=== PATIENT | female | born 1995 | race Hispanic/Latino ===

== ENCOUNTER 2018-07-06 19:46 | Emergency (ER) | payer SELFPAY ==
--- NOTE | 2018-07-06 20:43 | EDPHYS ---
Physician Documentation [facility] Name: Alma Bates Age: 23 yrs Sex: Female : 1995 Arrival Date: 07/06/2018 Time: 19:48 Bed 18 Private MD: ED Physician Mirza Bond HPI: 07/06 21:43 This 23 yrs old Female presents to ER via Ambulatory with complaints of jr8 Abscess. 21:43 Possible cause(s): unknown. Associated signs and symptoms: The patient has no apparent jr8 associated signs or symptoms. Modifying factors: the symptoms are alleviated by nothing, the symptoms are aggravated by pressure, sitting, squeezing the lesion and expressing the contents, touching. Severity of symptoms: At their worst the symptoms were mild, in the emergency department the symptoms are unchanged. The patient has not experienced similar symptoms in the past. The patient has been recently seen by a physician:. Patient stated that she has had an ongoing abscess that has been lanced twice and been on antibiotics. Second set helped but now back. Stated that something is sticking out of hit now . 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 - Social history:: Smoking status: Patient/guardian denies using tobacco. - Ebola Screening: : Patient denies travel to an Ebola-affected area in the 21 days before illness onset. ROS: 21:43 Eyes: Negative for injury, pain, redness, and discharge, ENT: Negative for injury, jr8 pain, and discharge, Neck: Negative for injury, pain, and swelling, Cardiovascular: Negative for chest pain, palpitations, and edema, Respiratory: Negative for shortness of breath, cough, wheezing, and pleuritic chest pain, Abdomen/GI: Negative for abdominal pain, nausea, vomiting, diarrhea, and constipation, Back: Negative for injury and pain, MS/Extremity: Negative for injury and deformity, Neuro: Negative for headache, weakness, numbness, tingling, and seizure. 21:43 Skin: Positive for abscess. Exam: 21:43 Cardiovascular: Regular rate and rhythm with a normal S1 and S2. No gallops, murmurs, jr8 or rubs. Normal PMI, no JVD. No pulse deficits. Respiratory: Lungs have equal breath sounds bilaterally, clear to auscultation and percussion. No rales, rhonchi or wheezes noted. No increased work of breathing, no retractions or nasal flaring. Abdomen/GI: Soft, non-tender, with normal bowel sounds. No distension or tympany. No guarding or rebound. No evidence of tenderness throughout. Back: No spinal tenderness. No costovertebral tenderness. Full range of motion. MS/ Extremity: Pulses equal, no cyanosis. Neurovascular intact. Full, normal range of motion. Neuro: Awake and alert, GCS 15, oriented to person, place, time, and situation. Cranial nerves II-XII grossly intact. Motor strength 5/5 in all extremities. Sensory grossly intact. Cerebellar exam normal. Normal gait. 21:43 Skin: Patient has approximately 1.5 cm round rased cystic looking mass with tissue protruding out of it. Exudate can be expressed. No surrounding erythema, cellulitis, or induration . Vital Signs: 20:05 BP 116 / 84; Pulse 65; Resp 16; Temp 97.3; Pulse Ox 100% on R/A; Weight 77.11 kg (R); aj1 Height 5 ft. 3 in. (160.02 cm) (R); Pain 9/10; 20:05 Body Mass Index 30.11 (77.11 kg, 160.02 cm) aj1 MDM: 20:23 Patient medically screened. jr8 20:40 Data reviewed: vital signs, nurses notes, and as a result, I will discharge patient. jr8 Data interpreted: Pulse oximetry: on room air is 100 %. Interpretation: normal. Counseling: I had a detailed discussion with the patient and/or guardian regarding: the historical points, exam findings, and any diagnostic results supporting the discharge/admit diagnosis, the need for outpatient follow up, a general surgeon, to return to the emergency department if symptoms worsen or persist or if there are any questions or concerns that arise at home. ED course: Discussed with patient that she has atypical cystic like structure with tissue hanging out of it. Could be from the healing process but cannot tell. Something that general surgery needs to resect and look at. Will culture and give antibiotics because of the continuous drainage. Patient good with this and will follow up . 07/06 20:40 Order name: Wound Culture jr8 07/06 20:50 Order name: Urine Dipstick--Ancillary (enter results) ms 07/06 20:50 Order name: Urine --Ancillary (enter results) ms Administered Medications: No medications were administered Disposition: 21:40 Co-signature as Attending Physician, Mirza Bond MD. pkl Disposition: 07/06/18 20:42 Discharged to Home. Impression: Cutaneous abscess of buttock. - Condition is Stable. - Discharge Instructions: Skin Abscess, Incision and Drainage. - Prescriptions for Bactrim DS 800- 160 mg Oral Tablet - take 1 tablet by ORAL route every 12 hours for 10 days; 20 tablet. - Medication Reconciliation Form, Thank You Letter, Antibiotic Education, Prescription Opioid Use form. - Follow up: Fam John MD; When: 2 - 3 days; Reason: Recheck today's complaints, Continuance of care, Re-evaluation by your physician. - Problem is new. - Symptoms have improved. Signatures: Dispatcher [employer] EDBrandy Patel, RN RN aj1 Mirza Bond MD MD pkl Rene Jimenez PA PA jr8 Isa Ashby, RN RN ak1 Corrections: (The following items were deleted from the chart) 20:51 20:42 07/06/2018 20:42 Discharged to Home. Impression: Cutaneous abscess of buttock. ak1 Condition is Stable. Forms are Medication Reconciliation Form, Thank You Letter, Antibiotic Education, Prescription Opioid Use. Follow up: Fam John; When: 2 - 3 days; Reason: Recheck today's complaints, Continuance of care, Re-evaluation by your physician. Problem is new. Symptoms have improved. jr8
--- NOTE | 2018-07-06 20:43 | ER ---
Nurse's Notes [facility] Name: Alma Bates Age: 23 yrs Sex: Female : 1995 Arrival Date: 07/06/2018 Time: 19:48 Bed 18 Private MD: Diagnosis: Cutaneous abscess of buttock Presentation: 07/06 20:01 Presenting complaint: Patient states: "I had this abscess and then I went to a clinic aj1 and they drained it and gave me antibiotics. I took them and it got a little better, but then it just kept draining. I ended up going to the hospital in [place] and they said nothing was wrong and they just drained it more and gave me more antibiotics, but then it it just stayed the same and I didn't get any more antibiotics. Now its really painful and bleeding a lot and it looks like something is sticking out of it" Reports abscess to coccyx. Patient has not followed up since previous ER visit. Denies fever. Transition of care: patient was not received from another setting of care. Onset of symptoms was May 2018. Risk Assessment: Do you want to hurt yourself or someone else? Patient reports no desire to harm self or others. Initial Sepsis Screen: Does the patient meet any 2 criteria? No. Patient's initial sepsis screen is negative. Does the patient have a suspected source of infection? Yes: Skin breakdown/wound. Care prior to arrival: None. 20:01 Method Of Arrival: Ambulatory aj1 20:01 Acuity: DIANE 4 aj1 Triage Assessment: 20:05 General: Appears in no apparent distress. comfortable, Behavior is calm, cooperative, aj1 appropriate for age. Pain: Complains of pain in coccyx Pain currently is 9 out of 10 on a pain scale. Neuro: Level of Consciousness is awake, alert, obeys commands. Cardiovascular: Patient's skin is warm and dry. Respiratory: Airway is patent Respiratory effort is even, unlabored, Respiratory pattern is regular, symmetrical. 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 - Social history:: Smoking status: Patient/guardian denies using tobacco. - Ebola Screening: : Patient denies travel to an Ebola-affected area in the 21 days before illness onset. Screenin:45 Abuse screen: Denies threats or abuse. Denies injuries from another. Nutritional ak1 screening: No deficits noted. Tuberculosis screening: No symptoms or risk factors identified. Fall Risk None identified. Assessment: 20:45 General: Appears in no apparent distress. Behavior is calm, cooperative. Pain: ak1 Complains of pain in buttocks and coccyx. Neuro: No deficits noted. Cardiovascular: No deficits noted. Respiratory: No deficits noted. GI: No signs and/or symptoms were reported involving the gastrointestinal system. : No signs and/or symptoms were reported regarding the genitourinary system. EENT: No signs and/or symptoms were reported regarding the EENT system. Derm: Wound noted buttocks and coccyx Wound is left buttocks growth/abscess noted. Musculoskeletal: No signs and/or symptoms reported regarding the musculoskeletal system. Vital Signs: 20:05 BP 116 / 84; Pulse 65; Resp 16; Temp 97.3; Pulse Ox 100% on R/A; Weight 77.11 kg (R); aj1 Height 5 ft. 3 in. (160.02 cm) (R); Pain 9/10; 20:05 Body Mass Index 30.11 (77.11 kg, 160.02 cm) aj1 ED Course: 19:48 Patient arrived in ED. es 20:05 Triage completed. aj1 20:05 Arm band placed on Patient placed in waiting room, Patient notified of wait time. aj1 20:22 Rene Jimenez PA is PHCP. jr8 20:22 Mirza Bond MD is Attending Physician. jr8 20:42 Fam John MD is Referral Physician. jr8 20:44 Isa Ashby, ADI is Primary Nurse. ak1 20:46 chaperoned exam. wound dressed with 4X4 and foam tape per verbal orders from provider. ak1 Patient did not have IV access during this emergency room visit. 20:47 Patient has correct armband on for positive identification. Bed in low position. Call ak1 light in reach. Side rails up X 1. Adult w/ patient. Administered Medications: No medications were administered Outcome: 20:42 Discharge ordered by . jr8 20:46 Discharged to home ambulatory, with family. ak1 20:46 Condition: good 20:46 Discharge instructions given to patient, family, Instructed on discharge instructions, follow up and referral plans. no drinking with medication, no driving heavy equipment, medication usage, safe sex practices, wound care, Demonstrated understanding of instructions, follow-up care, medications, wound care. 20:46 Instructed on Prescriptions given X 1. 20:51 Patient left the ED. ak1 Signatures: Brandy Palacios RN RN aj1 Huong Conley Josh, PA PA jr8 Isa Ashby RN RN ak1
[2018-07-06 21:43] VITALS: BP 116/84; TEMP 97.3; O2SAT 100
[2018-07-06 21:53] LABS: Urine Blood TRACE (NEG); Urine Glucose NEGATIVE (NEG); Urine Protein NEGATIVE (NEG); Urine Specific Gravity 1.015 (1.005-1.030); Urine pH >8.5 (5.0-7.0)
== END 2018-07-06 20:51 | disposition home or self-care (01) ==
LOC: ER 19:46
DX: L02.31 Cutaneous abscess of buttock (principal)
CPT/HCPCS: 81003; 81025; 87070; 87205; 99282

== ENCOUNTER 2018-07-16 07:57 | Day surgery (SDC) | payer SELFPAY ==
[2018-07-16] MEDS ORDERED: CEFAZOLIN/SWI 1gm 1 GM/10 ML SYR ONE (08:58)
[2018-07-16] MEDS ORDERED: Ringers Lactate 1,000 ML IV ONE (08:58)
[2018-07-16] MEDS ORDERED: BUPIVACA 0.25%/EPI 0.0005% MDV 50 ML VIAL ONE (09:32)
[2018-07-16] MEDS ORDERED: PROPOFOL 200 MG/20 ML VIAL IV ONE (09:34)
[2018-07-16] MEDS ORDERED: MIDAZOLAM HCL 2 MG/2 ML INJ ONE (09:34)
[2018-07-16] MEDS ORDERED: FENTANYL CITR 100 MCG/2 ML ONE (09:39)
[2018-07-16] MEDS ORDERED: LIDOCAINE 2% MPF 5 ML VIAL ONE (09:50)
[2018-07-16] MEDS ORDERED: ROCURONIUM 50 MG/5 ML VIAL IV ONE (09:53)
[2018-07-16] MEDS ORDERED: ONDANSETRON 4 MG/2 ML VIAL ONE (09:59)
[2018-07-16] MEDS ORDERED: KETOROLAC 30 MG/ML INJ ONE (09:59)
[2018-07-16] MEDS ORDERED: METOCLOPRAMIDE 10 MG/2mL INJ ONE (10:18)
--- NOTE | 2018-07-16 10:20 | P.OP ---
Preoperative diagnosis: Pilonidal Cyst Postoperative diagnosis: Pilonidal Cyst Primary procedure: Wide Local Excision of Pilonidal Cyst Anesthesia: GETA + Local Estimated blood loss: <5cc Specimen: Tissue from Pilonidal Cyst Findings: ~3x3x2 cm pilonidal cyst Complications: None Transferred to: Recovery Room Condition: Good
[2018-07-16 10:36] VITALS: O2SAT 100
[2018-07-16] MEDS: MEPERIDINE HCL 50 MG/ML AMP ONE ×3 (10:37→10:48)
[2018-07-16] MEDS ORDERED: HYDROCODONE/APAP 5/325 MG TAB ONE (11:51)
[2018-07-16] MEDS ORDERED: SUCCINYLCHOLINE 20 MG/ML (10 ML) IV ONE (11:58)
[2018-07-16 13:02] VITALS: BP 102/46; TEMP 97.2
--- NOTE | 2018-07-16 21:28 | OP ---
Date of Procedure: 07/16/2018 Surgeon: Fam John MD, Preoperative Diagnosis: Pilonidal cyst. Postoperative Diagnosis: Pilonidal cyst. Procedure Performed: Wide local excision of pilonidal cyst. Anesthesia: General endotracheal plus local with 0.25% Marcaine. Estimated Blood Loss: Less than 5 cc. Specimen: Tissues and pilonidal cyst. Findings: 3 x 3 x 2 cm pilonidal cyst of the superior cleft. Complications: None. Disposition: Transferred to recovery room in good condition. Procedure In Detail: After informed consent was obtained, the patient was brought to the operating r oom, prepped and draped in the usual sterile fashion. After adequate anesthesia was achieved, ellipt ical incision was made for approximately 3 x 2.5 cm down to approximately 2 cm depth down to encompas s significant area of pilonidal cyst disease with obvious inflammatory change. This was cleaned out completely until completely clear. Curette was used to scrape out all remaining pilonidal tissue in the area to the left of midline in the superior jenny cleft area. Once all the necrotic tissue and p ilonidal cyst disease were removed. The area was copiously irrigated. Hemostasis was easily achieve d with electrocautery and the area was inspected 1 last time. Hemostasis was achieved this time with out any additional hemostatic maneuvers. The wound was then packed with half-inch iodoform packing a nd sterile dressing was placed over the top. The patient tolerated the procedure well without compli cation and transferred to the PACU in good condition. All counts were correct at the end of the case. BRANDY/DHRUV Voice ID: [id number] Report ID: [id number]
== END 2018-07-16 12:52 | disposition home or self-care (01) ==
LOC: OR 07:57
PROVIDERS: ATTEND Surgery
PROC: 0JB90ZZ Excision of Buttock Subcutaneous Tissue and Fascia, Open Approach (ICD-10-PCS; principal; 2018-07-16 09:15)
DX: L05.91 Pilonidal cyst without abscess (principal)
CPT/HCPCS: 81025; 88304; J0330; J0690; J2175; J2250; J2405; J2704; J2765; J3010

== ENCOUNTER 2018-09-14 09:46 | Emergency (ER) | payer SELFPAY ==
[2018-09-14] MEDS ORDERED: LIDOCAINE 1% MPF 5 ML VIAL ONE (10:37)
--- NOTE | 2018-09-14 11:47 | ER ---
Nurse's Notes [facility] Name: Alma Bates Age: 23 yrs Sex: Female : 1995 Arrival Date: 09/14/2018 Time: 09:49 Bed 18 Private MD: Diagnosis: Cutaneous abscess of buttock Presentation: 09/14 10:03 Presenting complaint: Patient states: hx of pilonidal cyst, surgery X 2 months ago by iw Dr. John, noticed an abscess a couple days ago that got bigger over night, appears to be more superficial than the last. Transition of care: patient was not received from another setting of care. Onset of symptoms was September 14, 2018. Risk Assessment: Do you want to hurt yourself or someone else? Patient reports no desire to harm self or others. Initial Sepsis Screen: Does the patient meet any 2 criteria? No. Patient's initial sepsis screen is negative. Does the patient have a suspected source of infection? No. Patient's initial sepsis screen is negative. Care prior to arrival: None. 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 - Social history:: Smoking status: Patient/guardian denies using tobacco. - Ebola Screening: : Patient negative for fever greater than or equal to 101.5 degrees Fahrenheit, and additional compatible Ebola Virus Disease symptoms Patient denies exposure to infectious person Patient denies travel to an Ebola-affected area in the 21 days before illness onset No symptoms or risks identified at this time. Screenin:06 Abuse screen: Denies threats or abuse. Denies injuries from another. Nutritional iw screening: No deficits noted. Tuberculosis screening: No symptoms or risk factors identified. Fall Risk None identified. Assessment: 10:06 General: Appears in no apparent distress. Behavior is calm, cooperative. Pain: iw Complains of pain in gluteal cleft Pain currently is 10 out of 10 on a pain scale. Neuro: Level of Consciousness is awake, alert, obeys commands, Oriented to person, place, time, situation, Moves all extremities. Full function. Cardiovascular: Capillary refill < 3 seconds in bilateral fingers Patient's skin is warm and dry. Respiratory: Airway is patent Respiratory effort is even, unlabored. GI: No signs and/or symptoms were reported involving the gastrointestinal system. Derm: Skin is intact, is healthy with good turgor, Abscess located on gluteal cleft is half dollar sized, is raised. Musculoskeletal: Range of motion: intact in all extremities. 11:30 Reassessment: Patient appears in no apparent distress at this time. Patient and/or em family updated on plan of care and expected duration. Pain level reassessed. Patient is alert, oriented x 3, equal unlabored respirations, skin warm/dry/pink. Vital Signs: 10:05 BP 120 / 71; Pulse 73; Resp 16; Pulse Ox 100% on R/A; Weight 80.74 kg; Height 5 ft. 4 iw in. (162.56 cm); Pain 10/10; 10:05 Body Mass Index 30.55 (80.74 kg, 162.56 cm) iw ED Course: 09:49 Patient arrived in ED. as 10:02 Rene Jimenez PA is PHCP. em 10:04 Triage completed. iw 10:05 Arm band placed on. iw 10:06 Patient has correct armband on for positive identification. iw 10:28 Frederick Mcwilliams LVN is Primary Nurse. em 11:20 Fam John MD is Referral Physician. jr8 11:24 Kevin Mishra MD is Private Physician. jr8 11:25 Kevin Mishra MD is Attending Physician. jr8 11:30 Assist provider with I \T\ D: of an abscess on perianal Set up I\T\D tray. Performed by em Rene ZURITA Culture sent to lab. Dressing with Neosporin and 4X4s, tape Patient tolerated well. 11:45 Patient did not have IV access during this emergency room visit. em Administered Medications: 11:10 Drug: Lidocaine (1 %) 1 vials {Note: administered by PARMINDER López.} Volume: 20 ml; Route: em Infiltration; Outcome: 11:23 Discharge ordered by . jr8 11:45 Discharged to home ambulatory, with family. em 11:45 Condition: good 11:45 Discharge instructions given to patient, Instructed on discharge instructions, follow up and referral plans. medication usage, Demonstrated understanding of instructions, follow-up care, medications, Prescriptions given X 2. 11:46 Patient left the ED. em Signatures: Frederick Mcwilliams, SENIOR PROJECT ENGINEER SENIOR PROJECT ENGINEER Shari Cortez Irene, RN RN Rene Hernandez PA PA jr8
--- NOTE | 2018-09-14 11:47 | EDPHYS ---
Physician Documentation [facility] Name: Alma Bates Age: 23 yrs Sex: Female : 1995 Arrival Date: 09/14/2018 Time: 09:49 Bed 18 Private MD: ED Physician Kevin Mishra HPI: 09/14 11:17 This 23 yrs old Female presents to ER via Ambulatory with complaints of Cyst. jr8 11:17 The patient presents with an abscess of the buttocks. Description: The affected area is jr8 moderate sized, well demarcated, raised, swollen, tense. Onset: The symptoms/episode began/occurred gradually, 2 day(s) ago. Possible cause(s): unknown. Associated signs and symptoms: The patient has no apparent associated signs or symptoms. Modifying factors: the symptoms are alleviated by nothing, the symptoms are aggravated by pressure, sitting, squeezing the lesion and expressing the contents, touching. Severity of symptoms: At their worst the symptoms were mild, in the emergency department the symptoms are unchanged. The patient has experienced a previous episode. The patient has not recently seen a physician. History of pilonidal cyst. Had to have surgery to get rid of it in the past. Now sees another abscess at surgical site. 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 - Social history:: Smoking status: Patient/guardian denies using tobacco. - Ebola Screening: : Patient negative for fever greater than or equal to 101.5 degrees Fahrenheit, and additional compatible Ebola Virus Disease symptoms Patient denies exposure to infectious person Patient denies travel to an Ebola-affected area in the 21 days before illness onset No symptoms or risks identified at this time. ROS: 11:17 Eyes: Negative for injury, pain, redness, and discharge, ENT: Negative for injury, jr8 pain, and discharge, Neck: Negative for injury, pain, and swelling, Cardiovascular: Negative for chest pain, palpitations, and edema, Respiratory: Negative for shortness of breath, cough, wheezing, and pleuritic chest pain, Abdomen/GI: Negative for abdominal pain, nausea, vomiting, diarrhea, and constipation, Back: Negative for injury and pain, MS/Extremity: Negative for injury and deformity, Neuro: Negative for headache, weakness, numbness, tingling, and seizure. 11:17 Skin: Positive for abscess. Exam: 11:17 Eyes: Pupils equal round and reactive to light, extra-ocular motions intact. Lids and jr8 lashes normal. Conjunctiva and sclera are non-icteric and not injected. Cornea within normal limits. Periorbital areas with no swelling, redness, or edema. ENT: Nares patent. No nasal discharge, no septal abnormalities noted. Tympanic membranes are normal and external auditory canals are clear. Oropharynx with no redness, swelling, or masses, exudates, or evidence of obstruction, uvula midline. Mucous membranes moist. Neck: Trachea midline, no thyromegaly or masses palpated, and no cervical lymphadenopathy. Supple, full range of motion without nuchal rigidity, or vertebral point tenderness. No Meningismus. Cardiovascular: Regular rate and rhythm with a normal S1 and S2. No gallops, murmurs, or rubs. Normal PMI, no JVD. No pulse deficits. Respiratory: Lungs have equal breath sounds bilaterally, clear to auscultation and percussion. No rales, rhonchi or wheezes noted. No increased work of breathing, no retractions or nasal flaring. Abdomen/GI: Soft, non-tender, with normal bowel sounds. No distension or tympany. No guarding or rebound. No evidence of tenderness throughout. Back: No spinal tenderness. No costovertebral tenderness. Full range of motion. MS/ Extremity: Pulses equal, no cyanosis. Neurovascular intact. Full, normal range of motion. Neuro: Awake and alert, GCS 15, oriented to person, place, time, and situation. Cranial nerves II-XII grossly intact. Motor strength 5/5 in all extremities. Sensory grossly intact. Cerebellar exam normal. Normal gait. 11:17 Skin: abscess, that is small, approximately 2.5 cm(s), of the left gluteal cleft, with fluctuance, with pointing, cellulitis, is not appreciated. Vital Signs: 10:05 BP 120 / 71; Pulse 73; Resp 16; Pulse Ox 100% on R/A; Weight 80.74 kg; Height 5 ft. 4 iw in. (162.56 cm); Pain 10; 10:05 Body Mass Index 30.55 (80.74 kg, 162.56 cm) iw Procedures: 11:17 I \T\ D: Incision and drainage was performed for an abscess of the pilonidal cyst Prepped jr8 with Betadine, Anesthetized with 5 ml's 1% Lidocaine. Incised with #11 blade. Drained moderate amount purulent fluid. bloody fluid. Loculations removed. Cultures obtained. Abscess cavity explored. Packed with iodoform gauze, Dressing: sterile 4x4 gauze, the patient tolerated the procedure well. MDM: 10:05 Patient medically screened. jr8 11:17 Data reviewed: vital signs, nurses notes, lab test result(s), and as a result, I will jr8 discharge patient. Data interpreted: Pulse oximetry: on room air is 100 %. Interpretation: normal. Counseling: I had a detailed discussion with the patient and/or guardian regarding: the historical points, exam findings, and any diagnostic results supporting the discharge/admit diagnosis, lab results, the need for outpatient follow up, a general surgeon, to return to the emergency department if symptoms worsen or persist or if there are any questions or concerns that arise at home. 09/14 11:16 Order name: Wound Culture [facility] 09/14 10:23 Order name: I\T\D Setup; Complete Time: 10:28 [facility] Administered Medications: 11:10 Drug: Lidocaine (1 %) 1 vials {Note: administered by PA. Rene} Volume: 20 ml; Route: em Infiltration; Disposition: 09/15 09:14 Co-signature as Attending Physician, Kevin Mishra MD. gs Disposition: 09/14/18 11:23 Discharged to Home. Impression: Cutaneous abscess of buttock. - Condition is Stable. - Discharge Instructions: Skin Abscess, Incision and Drainage. - Prescriptions for Tylenol- Codeine #3 300-30 mg Oral Tablet - take 2 tablets by ORAL route every 6 hours As needed; 20 tablet. Bactrim DS 800- 160 mg Oral Tablet - take 1 tablet by ORAL route every 12 hours for 10 days; 20 tablet. - Work release form, Medication Reconciliation Form, Thank You Letter, Antibiotic Education, Prescription Opioid Use form. - Follow up: Fam John MD; When: 48 Hours; Reason: Wound Recheck, Recheck today's complaints, Continuance of care, Re-evaluation by your physician. - Problem is new. - Symptoms have improved. Signatures: Dispatcher [employer] EDFrederick Lazar, APPLICATION TECHNICIAN APPLICATION TECHNICIAN em Asha Bond RN RN Rene Hernandez, PARMINDER PA jr8 Kevin Mishra MD MD gs Corrections: (The following items were deleted from the chart) 09/14 11:46 11:23 09/14/2018 11:23 Discharged to Home. Impression: Cutaneous abscess of buttock. em Condition is Stable. Forms are Medication Reconciliation Form, Thank You Letter, Antibiotic Education, Prescription Opioid Use. Follow up: Fam John; When: 48 Hours; Reason: Wound Recheck, Recheck today's complaints, Continuance of care, Re-evaluation by your physician. Problem is new. Symptoms have improved. jr8
[2018-09-14 11:53] VITALS: BP 120/71; O2SAT 100
== END 2018-09-14 11:46 | disposition home or self-care (01) ==
LOC: ER 09:46
PROC: 0H98XZZ Drainage of Buttock Skin, External Approach (ICD-10-PCS; principal; 2018-09-14)
DX: L05.01 Pilonidal cyst with abscess (principal)
CPT/HCPCS: 87070; 87205; 99283

== ENCOUNTER 2018-09-17 17:56 | Emergency (ER) | payer SELFPAY ==
--- NOTE | 2018-09-17 19:06 | EDPHYS ---
Physician Documentation [facility] Name: Alma Bates Age: 23 yrs Sex: Female : 1995 Arrival Date: 09/17/2018 Time: 17:57 Bed 9 Private MD: ED Physician Saúl Flores HPI: 09/17 19:16 This 23 yrs old Female presents to ER via Ambulatory with complaints of Cyst. jr8 19:16 Patient presents to ED for recheck of: abscess. The affected area is on the buttocks. jr8 The patient has experienced a previous episode. The patient has been recently seen by a physician:. Patient was seen for I\T\D of abscess a few days ago. Came back today for repacking . 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 - Social history:: Smoking status: Patient/guardian denies using tobacco, Patient/guardian denies using alcohol. - Ebola Screening: : Patient negative for fever greater than or equal to 101.5 degrees Fahrenheit, and additional compatible Ebola Virus Disease symptoms Patient denies exposure to infectious person Patient denies travel to an Ebola-affected area in the 21 days before illness onset. ROS: 19:16 Eyes: Negative for injury, pain, redness, and discharge, ENT: Negative for injury, jr8 pain, and discharge, Neck: Negative for injury, pain, and swelling, Cardiovascular: Negative for chest pain, palpitations, and edema, Respiratory: Negative for shortness of breath, cough, wheezing, and pleuritic chest pain, Abdomen/GI: Negative for abdominal pain, nausea, vomiting, diarrhea, and constipation, Back: Negative for injury and pain, MS/Extremity: Negative for injury and deformity, Neuro: Negative for headache, weakness, numbness, tingling, and seizure. 19:16 Skin: Positive for abscess, of the buttocks. Exam: 19:16 Eyes: Pupils equal round and reactive to light, extra-ocular motions intact. Lids and jr8 lashes normal. Conjunctiva and sclera are non-icteric and not injected. Cornea within normal limits. Periorbital areas with no swelling, redness, or edema. ENT: Nares patent. No nasal discharge, no septal abnormalities noted. Tympanic membranes are normal and external auditory canals are clear. Oropharynx with no redness, swelling, or masses, exudates, or evidence of obstruction, uvula midline. Mucous membranes moist. Neck: Trachea midline, no thyromegaly or masses palpated, and no cervical lymphadenopathy. Supple, full range of motion without nuchal rigidity, or vertebral point tenderness. No Meningismus. Cardiovascular: Regular rate and rhythm with a normal S1 and S2. No gallops, murmurs, or rubs. Normal PMI, no JVD. No pulse deficits. Respiratory: Lungs have equal breath sounds bilaterally, clear to auscultation and percussion. No rales, rhonchi or wheezes noted. No increased work of breathing, no retractions or nasal flaring. Abdomen/GI: Soft, non-tender, with normal bowel sounds. No distension or tympany. No guarding or rebound. No evidence of tenderness throughout. Back: No spinal tenderness. No costovertebral tenderness. Full range of motion. MS/ Extremity: Pulses equal, no cyanosis. Neurovascular intact. Full, normal range of motion. Neuro: Awake and alert, GCS 15, oriented to person, place, time, and situation. Cranial nerves II-XII grossly intact. Motor strength 5/5 in all extremities. Sensory grossly intact. Cerebellar exam normal. Normal gait. 19:16 Skin: Wound recheck: Abscess: the wound has improved, decreased discharge, decreased erythema, decreased pain. Vital Signs: 18:13 BP 118 / 65; Pulse 69; Resp 18; Temp 97.8(TE); Pulse Ox 99% on R/A; Weight 79.38 kg; hj Height 5 ft. 4 in. (162.56 cm); Pain 10/10; 18:13 Body Mass Index 30.04 (79.38 kg, 162.56 cm) Procedures: 19:16 I \T\ D: Repacked wound with iodoform. Covered with non adherent and dressed with foam jr8 tape. MDM: 18:43 Patient medically screened. jr8 19:04 Data reviewed: vital signs, nurses notes, and as a result, I will discharge patient. jr8 Data interpreted: Pulse oximetry: on room air is 99 %. Interpretation: normal. Counseling: I had a detailed discussion with the patient and/or guardian regarding: the historical points, exam findings, and any diagnostic results supporting the discharge/admit diagnosis, the need for outpatient follow up, a general surgeon, to return to the emergency department if symptoms worsen or persist or if there are any questions or concerns that arise at home. Administered Medications: No medications were administered Disposition: 09/18 06:48 Co-signature as Attending Physician, Saúl Flores MD I agree with the assessment and angelina plan of care. Disposition: 09/17/18 19:06 Discharged to Home. Impression: Encounter for change or removal of surgical wound dressing. - Condition is Stable. - Discharge Instructions: Incision Care, Adult. - Medication Reconciliation Form, Thank You Letter, Antibiotic Education, Prescription Opioid Use form. - Follow up: Fam John MD; When: Tomorrow; Reason: Wound Recheck, Recheck today's complaints, Continuance of care, Re-evaluation by your physician. - Problem is new. - Symptoms have improved. Signatures: Deanna Baldwin, RN RN Saúl Henley MD MD cha Roszak, Josh, PA PA jr8 Mat Teran RN RN hj Corrections: (The following items were deleted from the chart) 09/17 19:19 19:06 09/17/2018 19:06 Discharged to Home. Impression: Encounter for change or removal aj of surgical wound dressing. Condition is Stable. Forms are Medication Reconciliation Form, Thank You Letter, Antibiotic Education, Prescription Opioid Use. Follow up: Fam John; When: Tomorrow; Reason: Wound Recheck, Recheck today's complaints, Continuance of care, Re-evaluation by your physician. Problem is new. Symptoms have improved. jr8
--- NOTE | 2018-09-17 19:06 | ER ---
Nurse's Notes [facility] Name: Alma Bates Age: 23 yrs Sex: Female : 1995 Arrival Date: 09/17/2018 Time: 17:57 Bed 9 Private MD: Diagnosis: Encounter for change or removal of surgical wound dressing Presentation: 09/17 18:11 Presenting complaint: Patient states: i came the other for a cyst on top of my butt hj crack, they lanced it and packed it; i cant take into a doctor for follow, was told to just come back here to remove the packing; denies fever and chills; pain is 10/10;. Transition of care: patient was not received from another setting of care. Onset of symptoms was September 17, 2018. Risk Assessment: Do you want to hurt yourself or someone else? Patient reports no desire to harm self or others. Initial Sepsis Screen: Does the patient meet any 2 criteria? No. Patient's initial sepsis screen is negative. Does the patient have a suspected source of infection? No. Patient's initial sepsis screen is negative. Care prior to arrival: None. 18:11 Method Of Arrival: Ambulatory 18:11 Acuity: DIANE 4 hj Triage Assessment: 18:13 General: Appears in no apparent distress. uncomfortable, Behavior is calm, cooperative, hj appropriate for age. Pain: Complains of pain in buttocks. 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 - Social history:: Smoking status: Patient/guardian denies using tobacco, Patient/guardian denies using alcohol. - Ebola Screening: : Patient negative for fever greater than or equal to 101.5 degrees Fahrenheit, and additional compatible Ebola Virus Disease symptoms Patient denies exposure to infectious person Patient denies travel to an Ebola-affected area in the 21 days before illness onset. Screenin:13 Abuse screen: Denies threats or abuse. Denies injuries from another. Nutritional hj screening: No deficits noted. Tuberculosis screening: No symptoms or risk factors identified. Fall Risk None identified. Assessment: 18:55 General: Appears in no apparent distress. comfortable, Behavior is calm, cooperative. iw Pain: Complains of pain in gluteal cleft. Neuro: Level of Consciousness is awake, alert, obeys commands, Oriented to person, place, time, situation, Moves all extremities. Full function. Cardiovascular: Patient's skin is warm and dry. Respiratory: Respiratory effort is even, unlabored. Derm: Abscess located on gluteal cleft is nickel sized, lanced by Rene last week, packing in place. Musculoskeletal: Range of motion: intact in all extremities. Vital Signs: 18:13 BP 118 / 65; Pulse 69; Resp 18; Temp 97.8(TE); Pulse Ox 99% on R/A; Weight 79.38 kg; hj Height 5 ft. 4 in. (162.56 cm); Pain 10/10; 18:13 Body Mass Index 30.04 (79.38 kg, 162.56 cm) ED Course: 17:57 Patient arrived in ED. am2 18:12 Triage completed. hj 18:13 Arm band placed on right wrist. hj 18:15 Patient has correct armband on for positive identification. Bed in low position. Call light in reach. Side rails up X 1. 18:43 [facility] jr8 18:43 Saúl Flores MD is Attending Physician. jr8 19:04 Fam John MD is Referral Physician. jr8 19:17 Deanna Baldwin, RN is Primary Nurse. aj 19:18 No provider procedures requiring assistance completed. Patient did not have IV access aj during this emergency room visit. Administered Medications: No medications were administered Outcome: 19:06 Discharge ordered by . jr8 19:18 Discharged to home ambulatory. aj 19:18 Condition: good 19:18 Discharge instructions given to patient, Instructed on discharge instructions, follow up and referral plans. Demonstrated understanding of instructions, follow-up care. 19:19 Patient left the ED. aj Signatures: Deanna Baldwin, RN Asha Donnelly RN Rene Burrows PA PA jrMat Kay RN RN hj Moreno, Amanda am2 Corrections: (The following items were deleted from the chart) 18:15 18:13 Pulse 69bpm; Resp 18bpm; Pulse Ox 99% RA; Temp 97.8F Temporal; 79.38 kg; Height 5 hj ft. 4 in.; BMI: 30.0; Pain 10/10; hj
[2018-09-17 20:27] VITALS: BP 118/65; TEMP 97.8; O2SAT 99
== END 2018-09-17 19:19 | disposition home or self-care (01) ==
LOC: ER 17:56
DX: L02.31 Cutaneous abscess of buttock (principal); Z48.01 Encounter for change or removal of surgical wound dressing
CPT/HCPCS: 99281

== ENCOUNTER 2018-09-24 07:21 | Day surgery (SDC) | payer SELFPAY ==
[2018-09-24] MEDS ORDERED: PROPOFOL 200 MG/20 ML VIAL IV ONE (08:04)
[2018-09-24] MEDS ORDERED: GLYCOPYRROLATE 0.2 MG/ML SYR ONE ×2 (08:06)
[2018-09-24] MEDS ORDERED: LIDOCAINE 2% MPF 5 ML VIAL ONE ×2 (08:07→09:13)
[2018-09-24] MEDS ORDERED: ROCURONIUM 50 MG/5 ML VIAL IV ONE (08:08)
[2018-09-24] MEDS ORDERED: FENTANYL CITR 250 MCG/5 ML ONE (08:08)
[2018-09-24] MEDS ORDERED: ONDANSETRON 4 MG/2 ML VIAL ONE (08:10)
[2018-09-24] MEDS ORDERED: CEFAZOLIN 1GM (PREMIX IV) 1 GM/50 ML BAG ONE (08:11)
[2018-09-24] MEDS ORDERED: Ringers Lactate 1,000 ML IV ONE (08:11)
[2018-09-24] MEDS ORDERED: MIDAZOLAM HCL 2 MG/2 ML INJ ONE (08:12)
[2018-09-24] MEDS ORDERED: BUPIVACA 0.25%/EPI 0.0005% MDV 50 ML VIAL ONE (08:29)
[2018-09-24] MEDS ORDERED: METHYLENE BLUE 0.5% 10 ML AMP ONE (08:30)
--- NOTE | 2018-09-24 08:56 | P.OP ---
Preoperative diagnosis: Pilonidal Cyst Postoperative diagnosis: Pilonidal Cyst Primary procedure: Excision of Pilonidal Cyst Anesthesia: GETA + Local Estimated blood loss: <2cc Specimen: Debridement Tissue Findings: ~4cm x 2cm x 2cm pilonidal cyst Complications: None Transferred to: Recovery Room Condition: Good
[2018-09-24] MEDS ORDERED: BUPIVACAINE 0.25% PF 10 ML VIAL ONE (09:13)
[2018-09-24] MEDS ORDERED: CYCLOPENTOLATE 1% OPTH 2 ML ONE (09:13)
[2018-09-24] MEDS: MEPERIDINE HCL 50 MG/ML AMP ONE ×3 (09:18→09:30)
[2018-09-24] MEDS ORDERED: NEOSTIGMINE 1 MG/ML -5 ML SYRINGE ONE (10:09)
[2018-09-24 10:14] VITALS: O2SAT 100
[2018-09-24] MEDS ORDERED: HYDROCODONE/APAP 5/325 MG TAB ONE (10:45)
[2018-09-24] MEDS ORDERED: ONDANSETRON 4 MG (ODT) TAB ONE (11:57)
[2018-09-24 12:40] VITALS: BP 107/70; TEMP 98
--- NOTE | 2018-09-24 20:29 | OP ---
Date of Procedure: 09/24/2018 Surgeon: Fma John MD, Brief History Of Present Illness: The patient is a 23-year-old female who has a history of significa nt pilonidal cyst disease, drained in the ER previously with recurrence of symptoms and enlargement o f the area of defect, consistent with enlarging pilonidal cyst. Preoperative Diagnosis: Pilonidal cyst. Postoperative Diagnosis: Pilonidal cyst. Procedure Performed: Excision of pilonidal cyst. Anesthesia: General endotracheal plus local with 0.25% Marcaine. Estimated Blood Loss: Less than 2 cc. Specimen: Debridement tissue. Findings: A 4 cm x 2 cm x 2 cm pilonidal cyst. Complications: None. Disposition: Transferred to recovery room in good condition. Procedure In Detail: After informed consent was obtained, the patient was brought to the operating r oom and prepped and draped in usual sterile fashion. After adequate anesthesia was achieved, an area of the pilonidal cyst at the superior jenny cleft was incised for approximately 4 cm x 2 cm elliptic al incision around the affected skin. This was taken down to approximately 2 cm to encompass the ent sedrick pilonidal cyst tissue and the hypertrophic granulation tissue. This was removed in its entirety. Hemostasis was achieved with electrocautery. The area was inspected. Proper hemostasis was achiev ed at the end of the procedure. The area was copiously irrigated multiple times and then dried until completely dry, and the wound was then packed with half-inch iodoform packing. A sterile dressing w as placed over top. The patient tolerated the procedure well without evidence of complication and tr ansferred to PACU in good condition. All counts were correct at the end of the case. BRANDY/DHRVU Voice ID: [id number] Report ID: [id number]
== END 2018-09-24 11:48 | disposition home or self-care (01) ==
LOC: OR 07:21
PROVIDERS: ATTEND Surgery
PROC: 0JB90ZZ Excision of Buttock Subcutaneous Tissue and Fascia, Open Approach (ICD-10-PCS; principal; 2018-09-24 08:30)
DX: L05.91 Pilonidal cyst without abscess (principal)
CPT/HCPCS: 81025; 88304; J0690; J2175; J2250; J2405; J2704; J2710; J3010

== ENCOUNTER 2019-01-24 19:24 | Emergency (ER) | payer SELFPAY ==
--- NOTE | 2019-01-24 20:25 | ER ---
Nurse's Notes [facility] Name: Alma Bates Age: 23 yrs Sex: Female : 1995 Arrival Date: 01/24/2019 Time: 19:28 Bed 7 Private MD: Diagnosis: Pilonidal cyst and sinus;Pilonidal cyst and sinus with abscess Presentation: 01/24 19:31 Presenting complaint: Patient states: I have had two surgeries to removal pilonidal ed1 cysts and I had another form over one of my scars. While I was at work today it popped and I squeezed it. I don't think it is draining anymore but it hurts. I called Dr. John and they prescribed me Bactrim and I started taking it today. Transition of care: patient was not received from another setting of care. Onset of symptoms was January 24, 2019. Risk Assessment: Do you want to hurt yourself or someone else? Patient reports no desire to harm self or others. Initial Sepsis Screen: Does the patient meet any 2 criteria? No. Patient's initial sepsis screen is negative. Does the patient have a suspected source of infection? No. Patient's initial sepsis screen is negative. Care prior to arrival: cleansed area with chlorhexidine. 19:31 Method Of Arrival: Ambulatory ed1 19:31 Acuity: DIANE 4 ed1 Triage Assessment: 19:34 General: Appears in no apparent distress. Behavior is calm, cooperative. Pain: ed1 Complains of pain in buttocks Pain currently is 10 out of 10 on a pain scale. 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 - Social history:: Smoking status: Patient/guardian denies using tobacco. - Ebola Screening: : Patient negative for fever greater than or equal to 101.5 degrees Fahrenheit, and additional compatible Ebola Virus Disease symptoms Patient denies exposure to infectious person Patient denies travel to an Ebola-affected area in the 21 days before illness onset No symptoms or risks identified at this time. Screenin:53 Abuse screen: Denies threats or abuse. Denies injuries from another. Nutritional lp1 screening: No deficits noted. Tuberculosis screening: No symptoms or risk factors identified. Fall Risk None identified. Assessment: 19:53 General: Appears uncomfortable, Behavior is appropriate for age. Pain: Complains of lp1 pain in coccyx. Neuro: Level of Consciousness is awake, alert, obeys commands. Cardiovascular: No deficits noted. Respiratory: No deficits noted. GI: No deficits noted. : No deficits noted. EENT: No deficits noted. Musculoskeletal: No deficits noted. 20:10 Derm: Abscess located on gluteal cleft is nickel sized. lp1 Vital Signs: 19:34 BP 114 / 65; Pulse 71; Resp 18; Temp 98.4; Pulse Ox 100% on R/A; Weight 81.65 kg; ed1 Height 5 ft. 3 in. (160.02 cm); Pain 10/10; 19:34 Body Mass Index 31.89 (81.65 kg, 160.02 cm) ed1 ED Course: 19:28 Patient arrived in ED. es 19:33 Triage completed. ed1 19:34 Arm band placed on left wrist. ed1 19:38 María Wolfe, RN is Primary Nurse. lp1 19:53 Patient has correct armband on for positive identification. lp1 20:03 Kevin Mishra MD is Attending Physician. gs 20:05 Patient did not have IV access during this emergency room visit. lp1 20:24 Fam John MD is Referral Physician. gs 20:35 No provider procedures requiring assistance completed. lp1 Administered Medications: 20:27 Drug: [place] 10 mg-325 mg 1 tabs Route: PO; lp1 20:40 Follow up: Response: Medication administered at discharge. lp1 Outcome: 20:24 Discharge ordered by . gs 20:40 Discharged to home ambulatory, with family. lp1 20:40 Condition: good 20:40 Discharge instructions given to patient, Instructed on discharge instructions, follow up and referral plans. medication usage, Demonstrated understanding of instructions, follow-up care, medications, Prescriptions given X 1. 20:40 Patient left the ED. lp1 Signatures: Huong Conley Erika, RN RN ed1 María Wolfe, ADI RN lp1 Kevin Mishra MD MD gs Corrections: (The following items were deleted from the chart) 19:36 19:31 Presenting complaint: Patient states: I have had two surgeries to removal ed1 pilonidal cysts and I had another form over one of my scars. While I was at work today it popped and I squeezed it. I don't think it is draining anymore but it hurts. ed1
--- NOTE | 2019-01-24 20:25 | EDPHYS ---
Physician Documentation [facility] Name: Alma Bates Age: 23 yrs Sex: Female : 1995 Arrival Date: 01/24/2019 Time: 19:28 Bed 7 Private MD: ED Physician Kevin Mishra HPI: 01/24 20:17 This 23 yrs old Female presents to ER via Ambulatory with complaints of Cyst. gs 20:17 Description: The affected area is small, confluent, draining, erythematous. Onset: The gs symptoms/episode began/occurred yesterday. Possible cause(s): pilonidal cyst. Associated signs and symptoms: Pertinent negatives: fever. Modifying factors: the symptoms are alleviated by nothing, the symptoms are aggravated by nothing. Severity of symptoms: At their worst the symptoms were moderate, in the emergency department the symptoms are unchanged. The patient has experienced similar episodes in the past, a few times. 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 - Social history:: Smoking status: Patient/guardian denies using tobacco. - Ebola Screening: : Patient negative for fever greater than or equal to 101.5 degrees Fahrenheit, and additional compatible Ebola Virus Disease symptoms Patient denies exposure to infectious person Patient denies travel to an Ebola-affected area in the 21 days before illness onset No symptoms or risks identified at this time. ROS: 20:17 All other systems are negative. gs Exam: 20:17 ENT: Nares patent. No nasal discharge, no septal abnormalities noted. Tympanic gs membranes are normal and external auditory canals are clear. Oropharynx with no redness, swelling, or masses, exudates, or evidence of obstruction, uvula midline. Mucous membranes moist. Neck: Trachea midline, no thyromegaly or masses palpated, and no cervical lymphadenopathy. Supple, full range of motion without nuchal rigidity, or vertebral point tenderness. No Meningismus. Cardiovascular: Regular rate and rhythm with a normal S1 and S2. No gallops, murmurs, or rubs. Normal PMI, no JVD. No pulse deficits. Respiratory: Lungs have equal breath sounds bilaterally, clear to auscultation and percussion. No rales, rhonchi or wheezes noted. No increased work of breathing, no retractions or nasal flaring. Abdomen/GI: Soft, non-tender, with normal bowel sounds. No distension or tympany. No guarding or rebound. No evidence of tenderness throughout. Back: No spinal tenderness. No costovertebral tenderness. Full range of motion. MS/ Extremity: Pulses equal, no cyanosis. Neurovascular intact. Full, normal range of motion. 20:17 Constitutional: The patient appears alert, awake. 20:17 Skin: abscess, that is small, with drainage, with induration, upper right buttock. Vital Signs: 19:34 BP 114 / 65; Pulse 71; Resp 18; Temp 98.4; Pulse Ox 100% on R/A; Weight 81.65 kg; ed1 Height 5 ft. 3 in. (160.02 cm); Pain 10/10; 19:34 Body Mass Index 31.89 (81.65 kg, 160.02 cm) ed1 MDM: 20:16 Patient medically screened. gs 20:17 Data reviewed: vital signs, nurses notes. Counseling: I had a detailed discussion with gs the patient and/or guardian regarding: the historical points, exam findings, and any diagnostic results supporting the discharge/admit diagnosis, the need for outpatient follow up, a general surgeon. Administered Medications: 20:27 Drug: [place] 10 mg-325 mg 1 tabs Route: PO; lp1 20:40 Follow up: Response: Medication administered at discharge. lp1 Disposition: 01/24/19 20:24 Discharged to Home. Impression: Pilonidal cyst and sinus, Pilonidal cyst and sinus with abscess. - Condition is Stable. - Discharge Instructions: Pilonidal Cyst. - Prescriptions for Tylenol- Codeine #3 300-30 mg Oral Tablet - take 1 tablet by ORAL route every 6 hours As needed; 12 tablet. - Medication Reconciliation Form, Thank You Letter, Antibiotic Education, Prescription Opioid Use form. - Follow up: Fam John MD; When: Tomorrow; Reason: Recheck today's complaints. Signatures: Alexia Espana RN RN ed1 María Wolfe RN RN lp1 Kevin Mishra MD MD gs Corrections: (The following items were deleted from the chart) 20:40 20:24 01/24/2019 20:24 Discharged to Home. Impression: Pilonidal cyst and sinus; lp1 Pilonidal cyst and sinus with abscess. Condition is Stable. Forms are Medication Reconciliation Form, Thank You Letter, Antibiotic Education, Prescription Opioid Use. Follow up: Fam John; When: Tomorrow; Reason: Recheck today's complaints. gs
[2019-01-24] MEDS ORDERED: HYDROCODONE/APAP 10/325 TAB ONE (20:38)
[2019-01-24 21:55] VITALS: BP 114/65; TEMP 98.4; O2SAT 100
== END 2019-01-24 20:40 | disposition home or self-care (01) ==
LOC: ER 19:24
DX: L05.02 Pilonidal sinus with abscess (principal)
CPT/HCPCS: 99283

== ENCOUNTER 2021-03-26 13:27 | Emergency (ER) | payer SELFPAY ==
--- OUTSIDE RECORDS SUMMARY | 2021-03-26 13:30 | XMS REPORT | Continuity of Care Document ---
:1995 Author Organization [facility] t Address [address] [place] [address] Care Team Providers Name Role Phone Florence Flores Attending Clinician Doctor Unassigned, [place] Attending Clinician Unavailable Grisel Gómez NP Attending Clinician Saw JOSHI Attending Clinician Unavailable Yazmin JOSHI, L Attending Clinician Unavailable Lab, Fam Pob I Attending Clinician Unavailable Problems This patient has no known problems. Allergies, Adverse Reactions, Alerts This patient has no known allergies or adverse reactions. Medications This patient has no known medications. Procedures This patient has no known procedures. Encounters Start End Encounter Admission Attending Care Care Encounter Source Date/Time Date/Time Type Type Clinicians Facility Department ID 2021-02-26 2021-02-27 Emergency [facility] [id number] 23:38:00 02:03:00 Florence Blankenship [id number] [place] [id number] [place] [id number] 2021-02-26 2021-02-26 Orders Doctor SWETA [id number] 00:00:00 00:00:00 Only UnassignedADIN [id number] [place] [facility] [id number] 2020-07-16 2020-07-16 Emergency [facility] [id number] 18:41:00 20:35:00 Trini Blankenship [id number] [place] [id number] [place] [id number] 2020-04-08 2020-04-08 Letter SWETA [place] [id number] 00:00:00 00:00:00 (Out) Lynn [place] [id number] [facility] [id number] 2020-04-08 2020-04-08 Telephone Arce SWETA [id number] 00:00:00 00:00:00 , Soraida [place] [id number] [place] [id number] 2020-04-07 2020-04-07 Laboratory Lab, [facility] [id number] 15:00:05 15:20:05 Only Fam [facility] [id number] [place] [id number] [place] [id number] [address]al [address] 2020-01-26 2020-01-27 Emergency [facility] [id number] 23:35:20 01:24:00 Trini Blankenship [id number] [place] [id number] [place] [id number] Results This patient has no known results.
[2021-03-26 14:18] LABS: Urine Blood Trace-intact (Negative); Urine Glucose Negative (Negative); Urine Protein Negative (Negative); Urine Specific Gravity 1.015 (1.005-1.030)
[2021-03-26 14:23] LABS: Absolute Lymphocytes (CBC) 2.2 K/uL (0.7-4.9); Basophils % 0.9 % (0-1.3); Lymphocytes % 24.7 % (15.3-44.8); RBC Red Blood Cell Count 4.56 M/uL (3.86-4.86)
[2021-03-26 14:39] LABS: ALT/SGPT 22 U/L (12-78); AST/SGOT 8 U/L (15-37); Albumin 3.7 g/dL (3.4-5.0); Alkaline Phosphatase 74 U/L (45-117); BUN Blood Urea Nitrogen 10 mg/dL (7-18); Bicarbonate 25 mmol/L (21-32); Bilirubin Direct < 0.1 mg/dL (0-0.2); Bilirubin Total 0.3 mg/dL (0.2-1.0); Glucose Level 109 mg/dL (74-106); Lipase 69 U/L (73-393); Potassium 3.5 mmol/L (3.5-5.1); Protein, Total 6.7 g/dL (6.4-8.2); Sodium Level 142 mmol/L (136-145)
--- NOTE | 2021-03-26 15:05 | RAD REPORT ---
EXAM DESCRIPTION: CTAbdomen Pelvis W Contrast - 03/26/2021 2:41 pm CLINICAL HISTORY: Abdominal pain. ABD PAIN COMPARISON: No comparisons TECHNIQUE: Biphasic CT imaging of the abdomen and pelvis was performed with 100 ml non-ionic IV cont rast. All CT scans are performed using dose optimization technique as appropriate and may include automated exposure control or mA/KV adjustment according to patient size. FINDINGS: The lung bases are clear. The liver, spleen, pancreas, gallbladder, and adrenal glands are unremarkable. Mild bilateral hydrone phrosis. No obstructing stone or mass identified. No suspicious renal mass. No stones are seen. No johnathon wel obstruction identified. Normal appendix. No bowel obstruction, free air, free fluid or abscess. The appendix is normal. No evidence of signi ficant lymphadenopathy. No suspicious bony findings. IMPRESSION: No acute intra-abdominal or pelvic finding. Mild bilateral hydronephrosis which is nonsp ecific and could reflect ascending urinary tract infection. Correlate with urinalysis. .
[2021-03-26] MEDS ORDERED: KETOROLAC 30 MG/ML INJ ONE (15:12)
[2021-03-26] MEDS ORDERED: ONDANSETRON 4 MG/2 ML VIAL ONE (15:12)
[2021-03-26 15:37] LABS: Urine Specific Gravity/Preg 1.015 (1.005-1.030)
--- NOTE | 2021-03-26 15:58 | EDPHYS ---
Physician Documentation [facility] Name: Alma Bates Age: 25 yrs Sex: Female : 1995 Arrival Date: 03/26/2021 Time: 13:29 Bed 6 Private MD: ED Physician Bradley Millard HPI: 03/26 14:31 This 25 yrs old Female presents to ER via Ambulatory with complaints of L Side kb Abd Pain. 14:31 The patient presents with abdominal pain in the left upper quadrant. Onset: The kb symptoms/episode began/occurred 2 week(s) ago. The symptoms do not radiate. Associated signs and symptoms: Pertinent positives: nausea, Pertinent negatives: diarrhea, fever, vomiting. The symptoms are described as intermittent. Modifying factors: The symptoms are alleviated by nothing, the symptoms are aggravated by nothing. Severity of pain: At its worst the pain was moderate in the emergency department the pain is unchanged. The patient has not experienced similar symptoms in the past. The patient has not recently seen a physician. Reports left upper abdominal pain intermittent for 2 weeks. Episodes are getting more frequent. Worse at night. Reports nausea. Denies vomiting diarrhea fever chills. 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 - Social history:: Smoking status: Patient denies any tobacco usage or history of. ROS: 14:28 Constitutional: Negative for fever, chills, and weight loss. kb 14:28 Abdomen/GI: Positive for abdominal pain, nausea, Negative for vomiting, diarrhea. 14:28 All other systems are negative. Exam: 14:28 Constitutional: This is a well developed, well nourished patient who is awake, alert, kb and in no acute distress. Head/Face: Normocephalic, atraumatic. ENT: Moist Mucous membranes Cardiovascular: Regular rate and rhythm with a normal S1 and S2. No gallops, murmurs, or rubs. No pulse deficits. Respiratory: Respirations even and unlabored. No increased work of breathing, no retractions or nasal flaring. Skin: Warm, dry with normal turgor. Normal color. MS/ Extremity: Pulses equal, no cyanosis. Neurovascular intact. Full, normal range of motion. Neuro: Awake and alert, GCS 15, oriented to person, place, time, and situation. Moves all extremities. Normal gait. Psych: Awake, alert, with orientation to person, place and time. Behavior, mood, and affect are within normal limits. 14:28 Abdomen/GI: Inspection: abdomen appears normal, Bowel sounds: normal, in all quadrants, Palpation: soft, in all quadrants, mild abdominal tenderness, in the right upper quadrant and left upper quadrant. Vital Signs: 13:38 BP 120 / 76; Pulse 87; Resp 20; Temp 98.3; Pulse Ox 99% on R/A; Weight 90.81 kg (M); kg Height 5 ft. 4 in. (162.56 cm); Pain 8/10; 14:57 BP 106 / 66; Pulse 71; Resp 17; Pulse Ox 100% on R/A; Pain 8/10; ap3 13:38 Body Mass Index 34.36 (90.81 kg, 162.56 cm) kg MDM: 13:46 Patient medically screened. kb 14:30 Data reviewed: vital signs, nurses notes. Data interpreted: Pulse oximetry: on room air kb is 99 %. Interpretation: normal. 15:56 Counseling: I had a detailed discussion with the patient and/or guardian regarding: the kb historical points, exam findings, and any diagnostic results supporting the discharge/admit diagnosis, lab results, radiology results, the need for outpatient follow up, a family practitioner, to return to the emergency department if symptoms worsen or persist or if there are any questions or concerns that arise at home. 03/26 13:46 Order name: Basic Metabolic Panel; Complete Time: 14:41 kb 03/26 13:46 Order name: CBC with Diff; Complete Time: 14:25 kb 03/26 13:46 Order name: Hepatic Function; Complete Time: 14:41 kb 03/26 13:46 Order name: Lipase; Complete Time: 14:41 kb 03/26 14:18 Order name: Urine Dipstick-Ancillary; Complete Time: 14:20 EDMS 03/26 15:06 Order name: Urine --Ancillary (enter results) eb 03/26 13:46 Order name: IV Saline Lock; Complete Time: 14:19 kb 03/26 13:46 Order name: Labs collected and sent; Complete Time: 14:19 kb 03/26 13:58 Order name: CT Abd/Pelvis - IV Contrast Only; Complete Time: 15:09 kb 03/26 15:07 Order name: Urine --Ancillary; Complete Time: 15:55 EDMS 03/26 15:10 Order name: Urine Microscopic Only kb 03/26 13:46 Order name: Urine Dipstick-Ancillary (obtain specimen); Complete Time: 14:19 kb 03/26 13:46 Order name: Urine Test (obtain specimen); Complete Time: 14:20 kb Administered Medications: 14:55 Drug: Ketorolac 30 mg Route: IVP; Site: left antecubital; ap3 16:28 Follow up: Response: No adverse reaction ap3 14:55 Drug: Zofran (Ondansetron) 4 mg Route: IVP; Site: left antecubital; ap3 16:28 Follow up: Response: No adverse reaction; Nausea is decreased ap3 Disposition Summary: 03/26/21 15:58 Discharge Ordered Location: Home kb Condition: Stable kb Diagnosis - Abdominal pain, Generalized kb Followup: kb - With: Emergency Department - When: As needed - Reason: Worsening of condition Followup: kb - With: Private Physician - When: 2 - 3 days - Reason: Recheck today's complaints, Continuance of care, Re-evaluation by your physician Discharge Instructions: - Discharge Summary Sheet kb - Abdominal Pain, Adult, [id number] kb Forms: - Medication Reconciliation Form kb - Thank You Letter kb - Antibiotic Education kb - Prescription Opioid Use kb Prescriptions: - Zofran 4 mg Oral Tablet - take 1 tablet by ORAL route every 6 hours As needed; 20 tablet; Refills: 0, kb Product Selection Permitted - dicyclomine 20 mg Oral Tablet - take 1 tablet by ORAL route 4 times per day As needed; 20 tablet; Refills: 0, kb Product Selection Permitted Addendum: 03/28/2021 17:07 Co-signature as Attending Physician, Bradley wilkerson a2 Signatures: Dispatcher [employer] EDHafsa Barriga, ROSA-C KNIT GOODS MENDER-Bradley Ibanez MD MD ma2 Deanna Monahan RN RN ap3 Verenice Reagan RN RN kg
--- NOTE | 2021-03-26 15:58 | ER ---
Nurse's Notes [facility] Name: Alma Bates Age: 25 yrs Sex: Female : 1995 Arrival Date: 03/26/2021 Time: :29 Bed 6 Private MD: Diagnosis: Abdominal pain, Generalized Presentation: 03/26 13:38 Chief complaint: Patient states: Left sided abdominal pain x 2 weeks that comes and kg goes. Worse at night and worse when eating certain foods, nausea denies diarrhea. Coronavirus screen: Client denies travel out of the [place] in the last 14 days. At this time, unable to obtain information related to travel outside the [place] At this time, the client does not indicate any symptoms associated with coronavirus-19. Ebola Screen: Patient negative for fever greater than or equal to 101.5 degrees Fahrenheit, and additional compatible Ebola Virus Disease symptoms Patient denies exposure to infectious person. Patient denies travel to an Ebola-affected area in the 21 days before illness onset. Initial Sepsis Screen: Does the patient meet any 2 criteria? No. Patient's initial sepsis screen is negative. Does the patient have a suspected source of infection? No. Patient's initial sepsis screen is negative. Risk Assessment: Do you want to hurt yourself or someone else? Patient reports no desire to harm self or others. Onset of symptoms was March 12, 2021. 13:38 Method Of Arrival: Ambulatory kg 13:38 Acuity: DIANE 3 kg Triage Assessment: 13:42 General: Appears uncomfortable, Behavior is calm, cooperative, appropriate for age, kg quiet. Pain: Complains of pain in Left side of abdomen Pain currently is 8 out of 10 on a pain scale. at worst was 10 out of 10 on a pain scale. level that patient reports is acceptable is 5 out of 10 on a pain scale. Quality of pain is described as sharp, "bloating" "Pulsating" Pain began 2 weeks ago Is episodic, Alleviated by rest, heat application, Aggravated by eating. 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 - Social history:: Smoking status: Patient denies any tobacco usage or history of. Screenin:41 Abuse screen: Denies threats or abuse. Denies injuries from another. Nutritional kg screening: No deficits noted. Tuberculosis screening: No symptoms or risk factors identified. Fall Risk None identified. Assessment: 14:55 General: Appears in no apparent distress. Behavior is calm, cooperative, appropriate ap3 for age. Pain: Complains of pain in right upper quadrant and left upper quadrant Pain does not radiate. Pain currently is 9 out of 10 on a pain scale. Quality of pain is described as aching, Pain began gradually over the last few weeks Is intermittent. Neuro: Level of Consciousness is awake, alert, obeys commands, Oriented to person, place, time, situation. Cardiovascular: Capillary refill < 3 seconds Patient's skin is warm and dry. Respiratory: Airway is patent Respiratory effort is even, unlabored, Respiratory pattern is regular, symmetrical. GI: Abdomen is round Bowel sounds present X 4 quads. Reports diarrhea, nausea. : No signs and/or symptoms were reported regarding the genitourinary system. EENT: No signs and/or symptoms were reported regarding the EENT system. Vital Signs: 13:38 BP 120 / 76; Pulse 87; Resp 20; Temp 98.3; Pulse Ox 99% on R/A; Weight 90.81 kg (M); kg Height 5 ft. 4 in. (162.56 cm); Pain 8/10; 14:57 BP 106 / 66; Pulse 71; Resp 17; Pulse Ox 100% on R/A; Pain 8/10; ap3 13:38 Body Mass Index 34.36 (90.81 kg, 162.56 cm) kg ED Course: 13:29 Patient arrived in ED. ds1 13:34 Hafsa Finch FNP-C is [facility]. kb 13:34 Bradley Millard MD is Attending Physician. kb 13:41 Triage completed. kg 13:41 Patient has correct armband on for positive identification. kg 14:12 Initial lab(s) drawn, by me, sent to lab. Inserted saline lock: 20 gauge in left dh3 antecubital area, using aseptic technique. Blood collected. 14:41 CT Abd/Pelvis - IV Contrast Only In Process Unspecified. EDMS 14:44 Deanna Monahan, RN is Primary Nurse. ap3 14:57 Arm band placed on right wrist. ap3 16:28 No provider procedures requiring assistance completed. IV discontinued, intact, ap3 bleeding controlled, No redness/swelling at site. Pressure dressing applied. Administered Medications: 14:55 Drug: Ketorolac 30 mg Route: IVP; Site: left antecubital; ap3 16:28 Follow up: Response: No adverse reaction ap3 14:55 Drug: Zofran (Ondansetron) 4 mg Route: IVP; Site: left antecubital; ap3 16:28 Follow up: Response: No adverse reaction; Nausea is decreased ap3 Outcome: 15:58 Discharge ordered by . medina 16:28 Discharged to home with significant other. ap3 16:28 Condition: good 16:28 Discharge instructions given to patient, Instructed on discharge instructions, follow up and referral plans. medication usage, Demonstrated understanding of instructions, follow-up care, medications, Prescriptions given X 2. 16:35 Patient left the ED. ap3 Signatures: Dispatcher [employer] EDAK Hafsa Finch, BEHAVIORAL SCIENCES DEPARTMENT CHAIR-C BEHAVIORAL SCIENCES DEPARTMENT CHAIR-Sharla Jefferson Deanna 3 Deanna Monahan, RN RN ap3 Verenice Reagan, ADI RN kg
[2021-03-26 16:52] VITALS: TEMP 98.3
[2021-03-26 16:54] VITALS: BP 106/66; O2SAT 100
== END 2021-03-26 16:35 | disposition home or self-care (01) ==
LOC: ER 13:27
DX: R10.84 Generalized abdominal pain (principal)
CPT/HCPCS: 36415; 74177; 80048; 80076; 81003; 81025; 82565; 83690; 85025; 96374; 96375; 99284; J2405; Q9967

== ENCOUNTER 2022-01-13 09:11 | Emergency (ER) | payer OTHER ==
--- OUTSIDE RECORDS SUMMARY | 2022-01-13 09:14 | XMS REPORT | Continuity of Care Document ---
:1995 Author Organization [facility] t Address [address] [place] [address] Care Team Providers Name Role Phone Pcp, Patient Does Not Have A Primary Care Physician [id number] AGUSTO Attending Clinician Unavailable Ultrasound Attending Clinician Unavailable Roya Beauchamp MD Attending Clinician Roya BEAUCHAMP Attending Clinician Unavailable ROBBIE STALLWORTH Attending Clinician Unavailable Robbie Stallworth MD Attending Clinician Geovany LEE, R Attending Clinician FAITH WHALEY Attending Clinician Unavailable Roselia ARMENTA Attending Clinician Unavailable Tyler LEE Attending Clinician Doctor Unassigned, Name Attending Clinician Unavailable Dalia TEST MANAGER, G Attending Clinician Saw JOSHI Attending Clinician Unavailable Yazmin RN, L Attending Clinician Unavailable Lab, Fam Pob I Attending Clinician Unavailable Payers Payer Name Policy Type Policy Number Effective Date Expiration Date S deepa [facility] [place] [id number] 2021 00:00:00 Problems Condition Condition Condition Status Onset Resolution Last Treating Co mments Source Name Details Category Date Date Treatment Clinician Date Obesity Obesity Disease Active Univers (BMI (BMI 5-02 ity of 30-39.9) 30-39.9) 00:00: [address] Branch High risk High risk Disease Active Uni vers , , 5-02 it y of antepartum antepartum 00:00: [facility] Obesity in Obesity in Disease Active U nivers - ity of 00:00: [address] Nausea and Nausea and Disease Active U nivers vomiting vomiting 01-03 ity of during during 00:00: [place] 00 Medi sonia prior to prior to Branch 22 weeks 22 weeks gestation gestation No known No known Disease Unive rs active active ity of problems problems [facility] Allergies, Adverse Reactions, Alerts Allergy Allergy Status Severity Reaction(s) Onset Inactive Treating Comm ents Source Name Type Date Date Clinician NO KNOWN Drug Active Univers ALLERGIE Class ity of S [facility] Social History Social Habit Start Date Stop Date Quantity Comments Source ASSERTION 2021-10-28 University of 00:00:00 [facility] History SDOH University o f Alcohol Frequency [facility] [place] [facility] edical Branch History SDOH University o f Alcohol Std [place] [facility] Drinks Branch History SDOH University o f Alcohol Binge [place] [facility] Branch Exposure to 2021-12-24 2022-01-03 Not sure [facility] SARS-CoV-2 00:00:00 13:57:00 [facility] (event) [place] Alcohol intake 2022-01-03 2022-01-03 Current drinker Unive rsity of 00:00:00 00:00:00 of alcohol [facility] (finding) [place] Alcohol Comment 2022-01-03 2022-01-03 Socially Universit y of 00:00:00 00:00:00 [facility] Tobacco use and 2021-12-13 2021-12-13 Never used Universit y of exposure 00:00:00 00:00:00 [facility] Sex [birth year] Universit y of 00:00:00 00:00:00 [facility] Smoking Status Start Date Stop Date Source Never smoker [facility] Medications Ordered Filled Start Stop Current Ordering Indication Dosage Frequency Signature Comments Components Source Medication Medication Date Date Medication? Clinician (SIG) Name Name pyridoxine, Yes [id number] 25mg Take 1 Univers VITAMIN 5-02 tablet by ity of B-6, 00:00: mouth [place] (VITAMIN 00 every 6 Medical B-6) 25 mg (six) Branch tablet hours as needed for Nausea and Vomiting (N/V). doxylamine Yes [id number] 25mg Take 1 U nivers (UNISOM, 5-02 tablet by ity of [place]XY[place] 25 mg 00 bedtime. Medical tablet Branch pyridoxine, Yes [id number] 25mg Take 1 Univers VITAMIN 5-02 tablet by ity of B-6, 00:00: mouth [place] (VITAMIN 00 every 6 Medical B-6) 25 mg (six) Branch tablet hours as needed for Nausea and Vomiting (N/V). doxylamine Yes [id number] 25mg Take 1 U nivers (UNISOM, 5-02 tablet by ity of DOXYLAMINE, [place] 25 mg 00 bedtime. Medical tablet Branch Nitrofurant 2021- Yes [id number] 100mg Take 1 Univers oin&Nit. 5-02 05-10 capsule by ity of Macrocryst 00:00: 04:59 mouth 2 John as (MACROBID) 00 :00 (two) Medical 100 mg times Branch capsule daily for 7 days. Yes [id number] 1{packe Take 1 Univers vit 4-14 t} Packet by ity of 33-iron-fol 00:00: mouth [place] ic-dha 00 daily. Medical (SELECT-OB Branch + DHA) 29 mg iron-1 mg -250 mg combo pack proMETHazin Yes [id number] 25mg Take 1 Univers e 25 mg 4-14 tablet by ity of tablet 00:00: mouth [place] 00 every 4 Medical (four) Branch hours as needed for Nausea and Vomiting (N/V). Yes [id number] 1{packe Take 1 Univers vit 4-14 t} Packet by ity of 33-iron-fol 00:00: mouth [place] ic-dha 00 daily. Medical (SELECT-OB Branch + DHA) 29 mg iron-1 mg -250 mg combo pack proMETHazin Yes [id number] 25mg Take 1 Univers e 25 mg 4-14 tablet by ity of tablet 00:00: mouth [place] 00 every 4 Medical (four) Branch hours as needed for Nausea and Vomiting (N/V). Yes [id number] 1{packe Take 1 Univers vit 4-14 t} Packet by ity of 33-iron-fol 00:00: mouth [place] ic-dha 00 daily. Medical (SELECT-OB Branch + DHA) 29 mg iron-1 mg -250 mg combo pack proMETHazin Yes [id number] 25mg Take 1 Univers e 25 mg 4-14 tablet by ity of tablet 00:00: mouth [place] 00 every 4 Medical (four) Branch hours as needed for Nausea and Vomiting (N/V). Yes [id number] 1{packe Take 1 Univers vit 4-14 t} Packet by ity of 33-iron-fol 00:00: mouth [place] ic-dha 00 daily. Medical (SELECT-OB Branch + DHA) 29 mg iron-1 mg -250 mg combo pack proMETHazin Yes [id number] 25mg Take 1 Univers e 25 mg 4-14 tablet by ity of tablet 00:00: mouth [place] 00 every 4 Medical (four) Branch hours as needed for Nausea and Vomiting (N/V). ondansetron 2021- No [id number] 4mg Take 1 Univers (ZOFRAN 4-14 04-14 tablet by ity of ODT) 4 mg 00:00: 00:00 mouth [place] disintegrat 00 :00 every 8 Medic al ing tablet (eight) Branch hours as needed for Nausea and Vomiting (N/V). Immunizations Ordered Filled Immunization Date Status Comments [facility] e Immunization Name Name SARS-COV-2 COVID-19 2021-01-08 Completed Unive rsity of MODERNA VACCINE 00:00:00 [facility] SARS-COV-2 COVID-19 2021-01-08 Completed Unive rsity of MODERNA VACCINE 00:00:00 [facility] SARS-COV-2 COVID-19 2021-01-08 Completed Unive rsity of MODERNA VACCINE 00:00:00 [facility] SARS-COV-2 COVID-19 2021-01-08 Completed Unive rsity of MODERNA VACCINE 00:00:00 [facility] SARS-COV-2 COVID-19 2020-12-11 Completed Unive rsity of MODERNA VACCINE 00:00:00 [facility] SARS-COV-2 COVID-19 2020-12-11 Completed Unive rsity of MODERNA VACCINE 00:00:00 [facility] SARS-COV-2 COVID-19 2020-12-11 Completed Unive rsity of MODERNA VACCINE 00:00:00 [facility] SARS-COV-2 COVID-19 2020-12-11 Completed Unive rsity of MODERNA VACCINE 00:00:00 [facility] Vital Signs Vital Name Observation Time Observation Value Comments Source Systolic blood 2022-01-03 19:16:00 108 mm[Hg] Univer sity of pressure [facility] Diastolic blood 2022-01-03 19:16:00 72 mm[Hg] Unive rsity of [facility] Heart rate 2022-01-03 19:16:00 75 /min [facility] Body temperature 2022-01-03 19:16:00 36.83 Jessica [facility] Respiratory rate 2022-01-03 19:16:00 16 /min [facility] Body height 2022-01-03 19:16:00 162.6 cm [facility] Body weight 2022-01-03 19:16:00 87.454 kg [facility] BMI 2022-01-03 19:16:00 33.09 kg/m2 [facility] Procedures Procedure Date / Time Performed Performing Clinician Sourc e POCT URINALYSIS W/O 2022-01-03 19:26:00 Norberto Stallworth [facility] Encounters Start End Encounter Admission Attending Care Care Encounter Source Date/Time Date/Time Type Type Clinicians Facility Department ID 2022-02-01 2022-02-01 Outpatient R AGUSTO [facility] [id number] Univers 16:00:00 16:00:00 BRENDON [id number] [facility] 2022-01-17 2022-01-17 Outpatient R [facility] [id number] Univers 09:30:00 09:30:00 [id number] [facility] 2022-01-17 2022-01-17 Outpatient R [facility] [id number] Univers 09:30:00 09:30:00 [facility] 2022-01-12 2022-01-12 Outpatient R [facility] [id number] Univers 09:30:00 09:30:00 [id number] ity [facility] 2022-01-12 2022-01-12 Wire Bender Ultrasound, Brandon [facility] [id number] Univers 08:00:00 08:30:00 Visit Rosalba Beauchamp [employer] [id number] ity of REGIONAL [id number] John as MATERNAL [id number] Med ical & CHILD [facility] 2022-01-12 2022-01-12 Outpatient P NELI [facility] [id number] Univers 08:00:00 08:00:00 ROSALBA ity [facility] 2022-01-03 2022-01-03 Outpatient R NORBERTO STALLWORTH [facility] [id number] Univers 14:15:00 15:43:51 ity [facility] 2022-01-03 2022-01-03 Initial Norberto Stallworth [facility] [id number] Univers 14:15:00 15:43:51 [place] [id number] ity of Visit [id number] [place] PROF[place] [id number] [address] 2021-12-30 2021-12-30 Telephone [facility] [id number] Univers 00:00:00 00:00:00 Rocío Veolz [employer] [id number] ity of [facility] [id number] John as MATERNAL [id number] [facility] & CHILD [address] [place] [address] 2021-12-16 2021-12-16 Telephone [facility] [id number] Univers 00:00:00 00:00:00 Rocío R [employer] [id number] ity of [facility] [id number] John as MATERNAL [id number] [facility] ical & CHILD [address] [place] [address] 2021-12-152021-12-15 Emergency X Maggie WHALEY [facility] ERT [id number] Univers 13:04:00 17:42:00 ity of [facility] 2021-12-13 2021-12-13 Outpatient R GEOVANY, [facility] [id number] Univers 08:45:00 09:49:37 ROCÍO ling o f [facility] 2021-02-26 2021-02-27 [facility] [id number] 23:38:00 02:03:00 Florence Krzysztof [id number] [place] 4.2.7.2.686 [place] [id number] 2021-02-26 2021-02-26 Orders Doctor SWETA [id number] 00:00:00 00:00:00 Only Unassigned, ADIN [id number] [facility] [id number] [id number] 2020-07-16 2020-07-16 [facility] [id number] 18:41:00 20:35:00 Trini Blankenship [id number] [place] [id number] [place] [id number] 2020-04-08 2020-04-08 Letter SWETA [place] [id number] 00:00:00 00:00:00 (Out) Lynn ADIN [id number] [place] [id number] 2020-04-08 2020-04-08 Telephone Yazmin SOL [id number] 00:00:00 00:00:00 , Soraidajanet OAKLEY [id number] [place] [id number] 2020-04-07 2020-04-07 Laboratory Lab, [facility] [id number] 15:00:05 15:20:05 Only Fam Pob I Health [id number] [place] [id number] [place] [id number] nal [address] 2020-01-26 2020-01-27 Emergency Dalia [facility] [id number] 23:35:20 01:24:00 Trini Blankenship [id number] [place] [id number] [place] [id number] Results Test Description Test Time Test Comments Results Result Comments Source POCT URINALYSIS W/O SPECIFIC GRAVITY 2022-01-03 19:26:00 Test Item Value Reference Range Interpretation Comme nts POCT PH U (test code = 3254) N/A 5-8 POCT U LEUK EST (test code = 3263) N/A Negative - Negative POCT U NIT (test code = 3262) N/A Negative - Negative POCT U PROT (test code = 3259) NEG Negative - Negative POCT U GLU (test code = 3256) NEG Negative - Negative POCT U KETONE (test code = 3258) N/A Negative - Negative POCT U BLD (test code = 3257) N/A Negative - Negative Lab Interpretation (test code = 55798-2) Normal [facility]
[2022-01-13 10:09] LABS: Absolute Lymphocytes (CBC) 1.1 K/uL (0.7-4.9); Hematocrit 38.8 % (36.0-45.0); Lymphocytes % 13.2 % (15.3-44.8); MPV 9.4 fL (7.6-11.3); RBC Red Blood Cell Count 4.28 M/uL (3.86-4.86)
[2022-01-13] MEDS ORDERED: NA CHLORIDE 0.9% 1,000 ML ONE (10:37)
[2022-01-13] MEDS ORDERED: METOCLOPRAMIDE 10 MG/2mL INJ ONE (10:37)
[2022-01-13 10:45] LABS: Albumin 3.3 g/dL (3.4-5.0); Bilirubin Total 0.4 mg/dL (0.2-1.0); Potassium 3.7 mmol/L (3.5-5.1); Protein, Total 6.8 g/dL (6.4-8.2)
[2022-01-13 11:21] LABS: Urine Blood Trace-lysed (Negative); Urine Glucose Negative (Negative); Urine Protein 2+ (Negative); Urine Specific Gravity >=1.030 (1.005-1.030)
--- NOTE | 2022-01-13 12:41 | ER ---
Nurse's Notes [facility] Name: Alma Bates Age: 26 yrs Sex: Female : 1995 Arrival Date: 01/13/2022 Time: 09:13 Bed 11 Private MD: Diagnosis: Vomiting Presentation: 01/13 09:38 Chief complaint: Patient states: constant nausea , has taken zofran and promethazine X iw 3 days, is approx 13 weeks . Coronavirus screen: At this time, the client does not indicate any symptoms associated with coronavirus-19. Ebola Screen: Patient negative for fever greater than or equal to 101.5 degrees Fahrenheit, and additional compatible Ebola Virus Disease symptoms Patient denies exposure to infectious person. Patient denies travel to an Ebola-affected area in the 21 days before illness onset. No symptoms or risks identified at this time. Initial Sepsis Screen: Does the patient meet any 2 criteria? No. Patient's initial sepsis screen is negative. Does the patient have a suspected source of infection? No. Patient's initial sepsis screen is negative. Risk Assessment: Do you want to hurt yourself or someone else? Patient reports no desire to harm self or others. Onset of symptoms was January 13, 2022. 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 - Social history:: Patient/guardian denies using. Screenin:55 Abuse screen: Denies threats or abuse. Denies injuries from another. Nutritional iw screening: Has had N/V for 3 or more days. Tuberculosis screening: No symptoms or risk factors identified. Fall Risk None identified. Assessment: 09:55 General: Appears uncomfortable, Behavior is calm, cooperative. Pain: Denies pain. iw Neuro: Level of Consciousness is awake, alert, obeys commands, Moves all extremities. GI: Abdomen is non-distended, Reports nausea, vomiting. Derm: Skin is intact, is healthy with good turgor. 12:30 Reassessment: Patient appears in no apparent distress at this time. Patient and/or ss family updated on plan of care and expected duration. Pain level reassessed. Patient is alert, oriented x 3, equal unlabored respirations, skin warm/dry/pink. nausea improved Patient states feeling better. Patient states symptoms have improved. Vital Signs: 09:38 BP 103 / 68; Pulse 97; Resp 16; Temp 98.8; Pulse Ox 100% on R/A; iw ED Course: 09:13 Patient arrived in ED. mr 09:14 Get Story PA is PHCP. rowan 09:14 Malachi Carvajal DO is Attending Physician. jm 09:39 Triage completed. iw 09:39 Arm band placed on. iw 09:55 Asha Bond, RN is Primary Nurse. iw 10:00 Inserted saline lock: 22 gauge in right antecubital area, using aseptic technique. ss Blood collected. 12:54 Patient has correct armband on for positive identification. Bed in low position. Call ss light in reach. 12:54 No provider procedures requiring assistance completed. IV discontinued, intact, ss bleeding controlled, No redness/swelling at site. Pressure dressing applied. Administered Medications: 10:42 Drug: NS 0.9% 1000 ml Route: IV; Rate: 1 bolus; Site: right antecubital; ss 11:44 Follow up: IV Status: Completed infusion; IV Intake: 1000ml ss 10:42 Drug: Reglan (metoCLOPramide) 20 mg Route: IVP; Site: right antecubital; ss 12:30 Follow up: Response: No adverse reaction; Marked relief of symptoms ss Medication: 12:54 VIS not applicable for this client. ss Intake: 11:44 IV: 1000ml; Total: 1000ml. ss Outcome: 12:41 Discharge ordered by MD. [facility] 12:54 Discharged to home ambulatory, with family. ss 12:54 Condition: good 12:54 Discharge instructions given to patient, family, Instructed on discharge instructions, follow up and referral plans. medication usage, Demonstrated understanding of instructions, follow-up care, medications, Prescriptions given X 3. 12:55 Patient left the ED. ss Signatures: Get Story PA PA jmm Rivera, Melany mr Asha Bond, RN RN iw Marely Curran, RN RN ss
--- NOTE | 2022-01-13 12:41 | EDPHYS ---
Physician Documentation [facility] Name: Alma Bates Age: 26 yrs Sex: Female : 1995 Arrival Date: 01/13/2022 Time: 09:13 Bed 11 Private MD: ED Physician Malachi Carvajal HPI: 01/13 09:44 This 26 yrs old Female presents to ER via Ambulatory with complaints of 13 wks jmm , Vomiting, Weakness. 09:44 Onset: The symptoms/episode began/occurred gradually. Is a 26-year-old G1, P0 the jmm presents emerged department with complaints of nausea and vomiting which has been ongoing throughout the but worse throughout the past week. Patient is tried ivfm-xli-sklyggx medications as well as Zofran and promethazine was a with no relief.. 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 - Social history:: Patient/guardian denies using. ROS: 09:44 Constitutional: Negative for fever, chills, and weight loss, Cardiovascular: Negative jmm for chest pain, palpitations, and edema, Respiratory: Negative for shortness of breath, cough, wheezing, and pleuritic chest pain. 09:44 Abdomen/GI: Positive for vomiting. 09:44 All other systems are negative. Exam: 09:44 Constitutional: This is a well developed, well nourished patient who is awake, alert, jmm and in no acute distress. Head/Face: atraumatic. Eyes: EOMI, no conjunctival erythema appreciated ENT: Moist Mucus Membranes Neck: Trachea midline, Supple Chest/axilla: Normal chest wall appearance and motion. Cardiovascular: Regular rate and rhythm. No edema appreciated Respiratory: Normal respirations, no respiratory distress appreciated Abdomen/GI: Non distended, soft 09:44 Skin: General appearance color normal MS/ Extremity: Moves all extremities, no obvious deformities appreciated, no edema noted to the lower extremities Neuro: Awake and alert Psych: Behavior is normal, Mood is normal, Patient is cooperative and pleasant 09:44 Abdomen/GI: Inspection: abdomen appears normal, Bowel sounds: normal, Palpation: abdomen is soft and non-tender, in all quadrants. Vital Signs: 09:38 BP 103 / 68; Pulse 97; Resp 16; Temp 98.8; Pulse Ox 100% on R/A; iw MDM: 09:[address] [facility] 12:40 Data reviewed: vital signs, nurses notes. Counseling: I had a detailed discussion with [facility] the patient and/or guardian regarding: the historical points, exam findings, and any diagnostic results supporting the discharge/admit diagnosis, lab results, the need for outpatient follow up, to return to the emergency department if symptoms worsen or persist or if there are any questions or concerns that arise at home. ED course: Patient states she feels much better. Patient advised to follow-up with her INVESTIGATION CLERK for further evaluation otherwise given strict return precautions. Patient understood agrees plan of care. 01/13 09:57 Order name: CBC with Diff; Complete Time: 10:12 [facility] 01/13 09:57 Order name: CMP; Complete Time: 10:46 [facility] 01/13 09:57 Order name: Lipase; Complete Time: 10:46 [facility] 01/13 11:22 Order name: Urine Dipstick-Ancillary; Complete Time: 11:30 [facility] 01/13 09:57 Order name: IV Saline Lock; Complete Time: 10:30 [facility] 01/13 09:57 Order name: Labs collected and sent; Complete Time: 10:30 [facility] 01/13 09:58 Order name: Urine Dipstick-Ancillary (obtain specimen); Complete Time: 11:22 [facility] Administered Medications: 10:42 Drug: NS 0.9% 1000 ml Route: IV; Rate: 1 bolus; Site: right antecubital; ss 11:44 Follow up: IV Status: Completed infusion; IV Intake: 1000ml ss 10:42 Drug: Reglan (metoCLOPramide) 20 mg Route: IVP; Site: right antecubital; ss 12:30 Follow up: Response: No adverse reaction; Marked relief of symptoms ss Disposition: 22:08 Co-signature as Attending Physician, Malachi Carvajal DO I was immediately available on-site ms3 in the Emergency Department for consultation in the care of the patient.. Disposition Summary: 01/13/22 12:41 Discharge Ordered Location: Home [facility] Condition: Stable [facility] Diagnosis - Vomiting [facility] Followup: [facility] - With: Private Physician - When: 2 - 3 days - Reason: Recheck today's complaints, Continuance of care, Re-evaluation by your physician Discharge Instructions: - Discharge Summary Sheet [facility] - Vomiting, Adult [facility] Forms: - Medication Reconciliation Form [facility] - Thank You Letter [facility] - Antibiotic Education [facility] - Prescription Opioid Use [facility] Prescriptions: - Diclegis 10-10 mg Oral tablet,delayed release (DR/EC) - take 1 tablet by ORAL route every 8 hours and 2 tablets at bedtime; 30 tablet; [facility] Refills: 0, Product Selection Permitted - Pepcid 20 mg Oral Tablet - take 1 tablet by ORAL route every 12 hours for 10 days; 20 tablet; Refills: 0, [facility] Product Selection Permitted - Reglan 10 mg Oral Tablet - take 1 tablet by ORAL route 1-2 times daily take 30 minutes before meals and at [facility] bedtime; 20 tablet; Refills: 0, Product Selection Permitted Signatures: Dispatcher [employer] EDGet Renteria PA PA Asha Amos RN RN iw Smirch, Shelby, RN RN Malachi Perez DO DO ms3
[2022-01-13 13:05] VITALS: BP 103/68; TEMP 98.8; O2SAT 100
== END 2022-01-13 12:55 | disposition home or self-care (01) ==
LOC: ER 09:11
DX: O21.9 Vomiting of pregnancy, unspecified (principal); Z3A.13 13 weeks gestation of pregnancy
CPT/HCPCS: 96361; 85025; 36415; 81003; 83690; 80053; 96374; 99284; J2765; J7030

== ENCOUNTER 2022-02-15 10:23 | Emergency (ER) | payer OTHER ==
--- OUTSIDE RECORDS SUMMARY | 2022-02-15 10:27 | XMS REPORT | Continuity of Care Document ---
:[address] [facility] t Address [address] [place] [address] Care Team Providers Name Role Phone PCP, PATIENT DOES NOT HAVE A Primary Care Physician UnavailROBBIE Edward Attending Clinician Unavailable FRANKI Attending Clinician Unavailable FRANKI Attending Clinician Unavailable Robbie Stallworth MD Attending Clinician Pob, Lab Main Attending Clinician Unavailable Agusto BONE Attending Clinician AGUSTO Attending Clinician Unavailable Doctor Unassigned, Name Attending Clinician Unavailable 2, Lab Attending Clinician Unavailable Geovany LEE R Attending Clinician Ultrasound Attending Clinician Unavailable Roya Beauchamp MD Attending Clinician Roya BEAUCHAMP Attending Clinician Unavailable FAITH WHALEY Attending Clinician Unavailable Roselia ARMENTA Attending Clinician Unavailable Tyler LEE Attending Clinician Dalia REYES, G Attending Clinician Saw JOSHI Attending Clinician Unavailable Yazmin RN, L Attending Clinician Unavailable Lab, Fam Pob I Attending Clinician Unavailable Payers Payer Name Policy Type Policy Number Effective Date Expiration Date Terri arenas [facility] [id number] 2021 00:00:00 Problems Condition Condition Condition Status Onset Resolution Last Treating Co mments Source Name Details Category Date Date Treatment Clinician Date Obesity Obesity Disease Active Univers (BMI (BMI 5-02 ity of 30-39.9) 30-39.9) 00:00: [address] High risk High risk Disease Active Uni vers , , 01-03 it y of antepartum antepartum 00:00: [address] Obesity in Obesity in Disease Active U nivers 01-03 ity of 00:00: [address] Nausea and Nausea and Disease Active U nivers vomiting vomiting 01-03 ity of during during 00:00: [place] 00 Medi sonia prior to prior to Branch 22 weeks 22 weeks gestation gestation No known No known Disease Unive rs active active ity of problems problems [facility] Allergies, Adverse Reactions, Alerts Allergy Allergy Status Severity Reaction(s) Onset Inactive Treating Comm ents Source Name Type Date Date Clinician NO KNOWN Drug Active Univers ALLERGIE Class ity of S [facility] Social History Social Habit Start Date Stop Date Quantity Comments Source ASSERTION 2021-10-28 University of 00:00:00 [facility] History SDOH University o f Alcohol Frequency [facility] edical Branch History SDOH University o f Alcohol Std [place] [facility] Drinks Branch History SDOH University o f Alcohol Binge [place] Medic al [place] Exposure to 2022-01-22 2022-02-01 Not sure [facility] SARS-CoV-2 00:00:00 15:56:00 [facility] (event) [place] Alcohol intake 2022-02-01 2022-02-01 Current drinker Unive rsity of 00:00:00 00:00:00 of alcohol [facility] (finding) [place] Alcohol Comment 2022-01-03 2022-01-03 Socially Universit y of 00:00:00 00:00:00 [facility] Tobacco use and 2021-12-13 2021-12-13 Never used Universit y of exposure 00:00:00 00:00:00 [facility] Sex [birth year] Universit y of 00:00:00 00:00:00 [facility] Smoking Status Start Date Stop Date Source Never smoker [facility] Medications Ordered Filled Start Stop Current Ordering Indication Dosage Frequency Signature Comments Components Source Medication Medication Date Date Medication? Clinician (SIG) Name Name pyridoxine, Yes [id number] 25mg Take 1 Univers VITAMIN 5-02 tablet by ity of B-6, 00:00: mouth [place] (VITAMIN 00 every 6 Medical B-6) 25 mg (six) Branch tablet hours as needed for Nausea and Vomiting (N/V). doxylamine 0 Yes [id number] 25mg Take 1 U nivers (UNISOM, 5-02 tablet by ity [place]AM[place] 00 bedtime. Medical tablet Branch pyridoxine, 0 Yes [id number] 25mg Take 1 Univers VITAMIN 5-02 tablet by ity of B-6, 00:00: mouth [place] (VITAMIN 00 every 6 Medical B-6) 25 mg (six) Branch tablet hours as needed for Nausea and Vomiting (N/V). doxylamine 0 Yes [id number] 25mg Take 1 U nivers (UNISOM, 5-02 tablet by ity of DOXYLAMINE, [place] 25 mg 00 bedtime. Medical tablet Branch pyridoxine, 0 Yes [id number] 25mg Take 1 Univers VITAMIN 5-02 tablet by ity of B-6, 00:00: mouth [place] (VITAMIN 00 every 6 Medical B-6) 25 mg (six) Branch tablet hours as needed for Nausea and Vomiting (N/V). doxylamine 0 Yes [id number] 25mg Take 1 U nivers (UNISOM, 5-02 tablet by ity of DOXYLAMINE, [place] 25 mg 00 bedtime. Medical tablet Branch pyridoxine, 0 Yes [id number] 25mg Take 1 Univers VITAMIN 5-02 tablet by ity of B-6, 00:00: mouth [place] (VITAMIN 00 every 6 Medical B-6) 25 mg (six) Branch tablet hours as needed for Nausea and Vomiting (N/V). doxylamine 0 Yes [id number] 25mg Take 1 U nivers (UNISOM, 5-02 tablet by ity of DOXYLAMINE, [place] 25 mg 00 bedtime. Medical tablet Branch pyridoxine, 0 Yes [id number] 25mg Take 1 Univers VITAMIN 5-02 tablet by ity of B-6, 00:00: mouth [place] (VITAMIN 00 every 6 Medical B-6) 25 mg (six) Branch tablet hours as needed for Nausea and Vomiting (N/V). doxylamine 0 Yes [id number] 25mg Take 1 U nivers (UNISOM, 5-02 tablet by ity of DOXYLAMINE, [place] 25 mg 00 bedtime. Medical tablet Branch pyridoxine, 0 Yes [id number] 25mg Take 1 Univers VITAMIN 5-02 tablet by ity of B-6, 00:00: mouth [place] (VITAMIN 00 every 6 Medical B-6) 25 mg (six) Branch tablet hours as needed for Nausea and Vomiting (N/V). doxylamine Yes [id number] 25mg Take 1 U nivers (UNISOM, 5-02 tablet by ity of DOXYLAMINE, [place] 25 mg 00 bedtime. Medical tablet Branch pyridoxine, Yes [id number] 25mg Take 1 Univers VITAMIN 5-02 tablet by ity of B-6, 00:00: mouth [place] (VITAMIN 00 every 6 Medical B-6) 25 mg (six) Branch tablet hours as needed for Nausea and Vomiting (N/V). doxylamine Yes [id number] 25mg Take 1 U nivers (UNISOM, 5-02 tablet by ity of DOXYLAMINE, [place] 25 mg 00 bedtime. Medical tablet Branch pyridoxine, Yes [id number] 25mg Take 1 Univers VITAMIN 5-02 tablet by ity of B-6, 00:00: mouth [place] (VITAMIN 00 every 6 Medical B-6) 25 mg (six) Branch tablet hours as needed for Nausea and Vomiting (N/V). doxylamine 0 Yes [id number] 25mg Take 1 U nivers (UNISOM, 5-02 tablet by ity of DOXYLAMINE, [place] 25 mg 00 bedtime. Medical tablet Branch pyridoxine, 0 Yes [id number] 25mg Take 1 Univers VITAMIN 5-02 tablet by ity of B-6, 00:00: mouth [place] (VITAMIN 00 every 6 Medical B-6) 25 mg (six) Branch tablet hours as needed for Nausea and Vomiting (N/V). doxylamine Yes [id number] 25mg Take 1 U nivers (UNISOM, 5-02 tablet by ity of DOXYLAMINE, [place]: [place] 25 mg 00 bedtime. Medical tablet Branch pyridoxine, Yes [id number] 25mg Take 1 Univers VITAMIN 5-02 tablet by ity of B-6, 00:00: mouth [place] (VITAMIN 00 every 6 Medical B-6) 25 mg (six) Branch tablet hours as needed for Nausea and Vomiting (N/V). doxylamine Yes [id number] 25mg Take 1 U nivers (UNISOM, 5-02 tablet by ity of DOXYLAMINE, [place] 25 mg 00 bedtime. Medical tablet Branch Nitrofurant 2021- Yes [id number] 100mg Take 1 Univers oin&Nit. 5-02 05-10 capsule by ity of Macrocryst 00:00: 04:59 mouth 2 John as (MACROBID) 00 :00 (two) Medical 100 mg times Branch capsule daily for 7 days. Yes [id number] 1{packe Take 1 Univers vit 4-14 t} Packet by ity of 33-iron-fol 00:00: mouth [place] ic-dha 00 daily. Medical (SELECT-OB Branch + DHA) 29 mg iron-1 mg -250 mg combo pack proMETHazin Yes [id number] 25mg Take 1 Univers e 25 mg 4-14 tablet by ity of tablet 00:00: mouth [place] 00 every 4 Medical (four) Branch hours as needed for Nausea and Vomiting (N/V). Yes [id number] 1{packe Take 1 Univers vit 4-14 t} Packet by ity of 33-iron-fol 00:00: mouth [place] ic-dha 00 daily. Medical (SELECT-OB Branch + DHA) 29 mg iron-1 mg -250 mg combo pack proMETHazin Yes [id number] 25mg Take 1 Univers e 25 mg 4-14 tablet by ity of tablet 00:00: mouth [place] 00 every 4 Medical (four) Branch hours as needed for Nausea and Vomiting (N/V). Yes [id number] 1{packe Take 1 Univers vit 4-14 t} Packet by ity of 33-iron-fol 00:00: mouth [place] ic-dha 00 daily. Medical (SELECT-OB Branch + DHA) 29 mg iron-1 mg -250 mg combo pack proMETHazin Yes [id number] 25mg Take 1 Univers e 25 mg 4-14 tablet by ity of tablet 00:00: mouth [place] 00 every 4 Medical (four) Branch hours as needed for Nausea and Vomiting (N/V). Yes [id number] 1{packe Take 1 Univers vit 4-14 t} Packet by ity of 33-iron-fol 00:00: mouth [place] ic-dha 00 daily. Medical (SELECT-OB Branch + DHA) 29 mg iron-1 mg -250 mg combo pack proMETHazin Yes [id number] 25mg Take 1 Univers e 25 mg 4-14 tablet by ity of tablet 00:00: mouth [place] 00 every 4 Medical (four) Branch hours as needed for Nausea and Vomiting (N/V). Yes [id number] 1{packe Take 1 Univers vit 4-14 t} Packet by ity of 33-iron-fol 00:00: mouth [place] ic-dha 00 daily. Medical (SELECT-OB Branch + DHA) 29 mg iron-1 mg -250 mg combo pack proMETHazin Yes [id number] 25mg Take 1 Univers e 25 mg 4-14 tablet by ity of tablet 00:00: mouth [place] 00 every 4 Medical (four) Branch hours as needed for Nausea and Vomiting (N/V). Yes [id number] 1{packe Take 1 Univers vit 4-14 t} Packet by ity of 33-iron-fol 00:00: mouth [place] ic-dha 00 daily. Medical (SELECT-OB Branch + DHA) 29 mg iron-1 mg -250 mg combo pack proMETHazin Yes [id number] 25mg Take 1 Univers e 25 mg 4-14 tablet by ity of tablet 00:00: mouth [place] 00 every 4 Medical (four) Branch hours as needed for Nausea and Vomiting (N/V). Yes [id number] 1{packe Take 1 Univers vit 4-14 t} Packet by ity of 33-iron-fol 00:00: mouth [place] ic-dha 00 daily. Medical (SELECT-OB Branch + DHA) 29 mg iron-1 mg -250 mg combo pack proMETHazin Yes [id number] 25mg Take 1 Univers e 25 mg 4-14 tablet by ity of tablet 00:00: mouth [place] 00 every 4 Medical (four) Branch hours as needed for Nausea and Vomiting (N/V). Yes [id number] 1{packe Take 1 Univers vit 4-14 t} Packet by ity of 33-iron-fol 00:00: mouth [place] ic-dha 00 daily. Medical (SELECT-OB Branch + DHA) 29 mg iron-1 mg -250 mg combo pack proMETHazin Yes [id number] 25mg Take 1 Univers e 25 mg 4-14 tablet by ity of tablet 00:00: mouth [place] 00 every 4 Medical (four) Branch hours as needed for Nausea and Vomiting (N/V). Yes [id number] 1{packe Take 1 Univers vit 4-14 t} Packet by ity of 33-iron-fol 00:00: mouth [place] ic-dha 00 daily. Medical (SELECT-OB Branch + DHA) 29 mg iron-1 mg -250 mg combo pack proMETHazin Yes [id number] 25mg Take 1 Univers e 25 mg 4-14 tablet by ity of tablet 00:00: mouth [place] 00 every 4 Medical (four) Branch hours as needed for Nausea and Vomiting (N/V). Yes [id number] 1{packe Take 1 Univers vit 4-14 t} Packet by ity of 33-iron-fol 00:00: mouth [place] ic-dha 00 daily. Medical (SELECT-OB Branch + DHA) 29 mg iron-1 mg -250 mg combo pack proMETHazin Yes [id number] 25mg Take 1 Univers e 25 mg 4-14 tablet by ity of tablet 00:00: mouth [place] 00 every 4 Medical (four) Branch hours as needed for Nausea and Vomiting (N/V). Yes [id number] 1{packe Take 1 Univers vit 4-14 t} Packet by ity of 33-iron-fol 00:00: mouth [place] ic-dha 00 daily. Medical (SELECT-OB Branch + DHA) 29 mg iron-1 mg -250 mg combo pack proMETHazin Yes [id number] 25mg Take 1 Univers e 25 mg 4-14 tablet by ity of tablet 00:00: mouth [place] 00 every 4 Medical (four) Branch hours as needed for Nausea and Vomiting (N/V). Yes [id number] 1{packe Take 1 Univers vit 4-14 t} Packet by ity of 33-iron-fol 00:00: mouth [place] ic-dha 00 daily. Medical (SELECT-OB Branch + DHA) 29 mg iron-1 mg -250 mg combo pack proMETHazin Yes [id number] 25mg Take 1 Univers e 25 mg 4-14 tablet by ity of tablet 00:00: mouth [place] 00 every 4 Medical (four) Branch hours as needed for Nausea and Vomiting (N/V). ondansetron 2021- No [id number] 4mg Take 1 Univers (ZOFRAN 4-14 04-14 tablet by ity of ODT) 4 mg 00:00: 00:00 mouth [place] disintegrat 00 :00 every 8 Medic al ing tablet (eight) Branch hours as needed for Nausea and Vomiting (N/V). Immunizations Ordered Filled Immunization Date Status Comments [facility] e Immunization Name Name SARS-COV-2 COVID-19 2021-01-08 Completed Unive rsity of MODERNA VACCINE 00:00:00 [facility] SARS-COV-2 COVID-19 2021-01-08 Completed Unive rsity of MODERNA VACCINE 00:00:00 [facility] SARS-COV-2 COVID-19 2021-01-08 Completed Unive rsity of MODERNA VACCINE 00:00:00 [facility] SARS-COV-2 COVID-19 2021-01-08 Completed Unive rsity of MODERNA VACCINE 00:00:00 [facility] SARS-COV-2 COVID-19 2021-01-08 Completed Unive rsity of MODERNA VACCINE 00:00:00 [facility] SARS-COV-2 COVID-19 2021-01-08 Completed Unive rsity of MODERNA VACCINE 00:00:00 [place] Med ical Branch SARS-COV-2 COVID-19 2021-01-08 Completed Unive rsity of MODERNA VACCINE 00:00:00 [place] Med ical Branch SARS-COV-2 COVID-19 2021-01-08 Completed Unive rsity of MODERNA VACCINE 00:00:00 [place] Med ical Branch SARS-COV-2 COVID-19 2021-01-08 Completed Unive rsity of MODERNA VACCINE 00:00:00 [place] Med ical Branch SARS-COV-2 COVID-19 2021-01-08 Completed Unive rsity of MODERNA VACCINE 00:00:00 [place] Med ical Branch SARS-COV-2 COVID-19 2021-01-08 Completed Unive rsity of MODERNA VACCINE 00:00:00 [place] Med ical Branch SARS-COV-2 COVID-19 2021-01-08 Completed Unive rsity of MODERNA VACCINE 00:00:00 [place] Med ical Branch SARS-COV-2 COVID-19 2020-12-11 Completed Unive rsity of MODERNA VACCINE 00:00:00 [place] Med ical Branch SARS-COV-2 COVID-19 2020-12-11 Completed Unive rsity of MODERNA VACCINE 00:00:00 [place] Med ical Branch SARS-COV-2 COVID-19 2020-12-11 Completed Unive rsity of MODERNA VACCINE 00:00:00 [place] Med ical Branch SARS-COV-2 COVID-19 2020-12-11 Completed Unive rsity of MODERNA VACCINE 00:00:00 [place] Med ical Branch SARS-COV-2 COVID-19 2020-12-11 Completed Unive rsity of MODERNA VACCINE 00:00:00 [place] Med ical Branch SARS-COV-2 COVID-19 2020-12-11 Completed Unive rsity of MODERNA VACCINE 00:00:00 [place] [facility] ical Branch SARS-COV-2 COVID-19 2020-12-11 Completed Unive rsity of MODERNA VACCINE 00:00:00 [place] Med ical Branch SARS-COV-2 COVID-19 2020-12-11 Completed Unive rsity of MODERNA VACCINE 00:00:00 [place] Med ical Branch SARS-COV-2 COVID-19 2020-12-11 Completed Unive rsity of MODERNA VACCINE 00:00:00 [facility] ical Branch SARS-COV-2 COVID-19 2020-12-11 Completed Unive rsity of MODERNA VACCINE 00:00:00 [facility] ical Branch SARS-COV-2 COVID-19 2020-12-11 Completed Unive rsity of MODERNA VACCINE 00:00:00 [facility] Branch SARS-COV-2 COVID-19 2020-12-11 Completed Unive rsity of MODERNA VACCINE 00:00:00 [facility] Branch Vital Signs Vital Name Observation Time Observation Value Comments Source Systolic blood 2022-02-01 21:05:00 104 mm[Hg] Univer sity of pressure [facility] Branch Diastolic blood 2022-02-01 21:05:00 68 mm[Hg] Unive rsity of pressure [facility] Branch Heart rate 2022-02-01 21:05:00 71 /min Universi ty of [facility] Body temperature 2022-02-01 21:05:00 36.67 Jessica Univ ersity of [place] [facility] Respiratory rate 2022-02-01 21:05:00 18 /min Univ ersity [facility] [place] [facility] Body height 2022-02-01 21:05:00 162.6 cm Universi ty [facility] [place] [facility] Body weight 2022-02-01 21:05:00 86.183 kg Universi ty of [facility] Branch BMI 2022-02-01 21:05:00 32.61 kg/m2 Universi ty of [facility] Branch Systolic blood 2022-01-03 19:16:00 108 mm[Hg] Univer sity of pressure [facility] Branch Diastolic blood 2022-01-03 19:16:00 72 mm[Hg] Unive rsity of pressure [facility] Branch Heart rate 2022-01-03 19:16:00 75 /min Universi ty [facility] [place] [facility] Body temperature 2022-01-03 19:16:00 36.83 Jessica Univ ersity of [facility] Branch Respiratory rate 2022-01-03 19:16:00 16 /min Univ ersity of [facility] Branch Body height 2022-01-03 19:16:00 162.6 cm Universi ty [facility] [place] [facility] Body weight 2022-01-03 19:16:00 87.454 kg [facility] BMI 2022-01-03 19:16:00 33.09 kg/m2 [facility] Procedures Procedure Date / Time Performed Performing Clinician James e ASSIGNMENT OF BENEFITS 2022-02-01 21:43:55 Doctor Unassigned, No [facility] Name [facility] Branch POCT URINALYSIS W/O 2022-02-01 00:00:00 Ana Medina [facility] POCT URINALYSIS W/O 2022-01-03 19:26:00 Norberto Stallworth [facility] Encounters Start End Encounter Admission Attending Care Care Encounter Source Date/Time Date/Time Type Type Clinicians Facility Department ID 2022-03-04 2022-03-04 Outpatient R [facility] [id number] Univers 09:00:00 09:00[facility] [id number] [facility] 2022-03-04 2022-03-04 Outpatient P [facility] [id number] Univers 09:00:00 09[facility]00[facility] 2022-02-28 2022-02-28 Outpatient R NORBERTO STALLWORTH [facility] [id number] Univers 16:00:00 16:00:00 [id number] [facility] 2022-02-15 2022-02-15 Outpatient R GABRIELLA DOAN [facility] B [id number] Univers 09:00:00 09:00:00 GABRIELLA DOAN [id number] [facility] 2022-02-15 2022-02-15 Outpatient R GABRIELLA DOAN [facility] B [id number] Univers 00:00:00 00:00:00 GABRIELLA DOAN [facility] 2022-02-15 2022-02-15 Telephone Norberto Stallworth GAJUAQUIN [id number] Univers 00:00:00 00:00:00 Robbie SAHA [id number] i ty [facility] [id number] Blanca aaron PROFESSIO [id number] Ct dical [place] [id number] Branch [facility] 2022-02-01 2022-02-01 Winder Hand Francesco, Adc Lab Main [facility] [id number] [id number] Univers 17:00:00 17:15:00 Visit Ana Medina [id number] ity of [id number] PROFESSIO [id number] Ct dical NAL [address] [facility] 2022-02-01 2022-02-01 [facility] [id number] Univers 17:00:00 17:00:00 ANA [id number] ity [facility] 2022-02-01 2022-02-01 Outpatient R AGUSTO [facility] [id number] Univers 17:00:00 17:00:00 ANA ity [facility] 2022-02-01 2022-02-01 [facility] [id number] Univers 16:00:00 16:15:00 Ana SAHA [id number] ity of Visit [place] [id number] PROFESSIO [id number] Ct dical NAL [address] [facility] 2022-02-01 2022-02-01 Telephone Norberto Stallworth [facility] [id number] Univers 00:00:00 00:00:00 Robbie SAHA [id number] i ty of [id number] PROFESS[place] [id number] Ct dical NAL [address] [facility] 2022-02-01 2022-02-01 Orders Doctor SWETA [id number] Univers 00:00:00 00:00:00 Only Unassigned, ADIN [id number] ity of [place] [facility] 4.2.7.2.686 John as [id number] [address] 2022-01-27 2022-01-27 Telephone Norberto Stallworth [facility] 1.2.840.114 [id number] Univers 00:00:00 00:00:00 Cam YIFAN [id number] i ty of [place] 4[place] PROF[place] [id number] Me dical NAL [address] [facility] 2022-01-17 2022-01-17 Winder Hand 2, Adc Lab [facility] 1.2.840.114 [id number] Univers 09:45:00 10:00:00 [id number] [id number] [id number] Me dical NAL [address] [facility] 2022-01-17 2022-01-17 Outpatient R [facility] [id number] Univers 09:45:00 09:45:00 [id number] ity [facility] 2022-01-17 2022-01-17 Outpatient R NORBERTO STALLWORTH [facility] [id number] Univers 09:45:00 09:45:00 ity [facility] 2022-01-13 2022-01-13 Abstract Geovany [facility] 1.2.840.114 [id number] Univers 00:00:00 00:00:00 Rocío Veloz WORSHIP DIRECTOR [id number] ity of [facility] 4.2.7.2.686 John as MATERNAL [id number] Med ical & CHILD 107 [facility] [place] 2022-01-12 2022-01-12 Outpatient R [facility] [id number] Univers 09:30:00 09:30:00 [id number] [facility] 2022-01-12 2022-01-12 Winder Hand Ultrasound, [facility] 1.2 .840.114 [id number] Univers 08:00:00 08:30:00 Visit Rosalba Beauchamp WORSHIP DIRECTOR [id number] ity [facility] [id number] John as MATERNAL [id number] Med ical & CHILD 369 [facility] [place] 2022-01-12 2022-01-12 Outpatient P NELI [facility] [id number] Univers 08:00:00 08:00:00 ORSALBA ity [facility] 2022-01-03 2022-01-03 Outpatient R NORBERTO STALLWORTH [facility] [id number] Univers 14:15:00 15:43:51 ity [facility] 2022-01-03 2022-01-03 Initial Norberto Stallworth [facility] [id number] Univers 14:15:00 15:43:51 Cam YIFAN 350.1.13.10 ity of Visit [place] ESSIO [id number] Ct dical [address] 2021-12-30 2021-12-30 Telephone [facility] [id number] [id number] Univers 00:00:00 00:00:00 Rocío R WORSHIP DIRECTOR [id number] ity of [facility] [id number] John as MATERNAL [id number] Med ical & CHILD [address] [place] [address] 2021-12-16 2021-12-16 Telephone [facility] [id number] Univers 00:00:00 00:00:00 Rocío R WORSHIP DIRECTOR [id number] ity of [facility] [id number] John as MATERNAL [id number] Med ical & CHILD [address] [place] [address] 2021-12-15 2021-12-15 Emergency X Maggie WHALEY [facility] ERT [id number] Univers 13:04:00 17:42:00 ity of [facility] 2021-12-13 2021-12-13 Outpatient R GEOVANY [facility] [id number] Univers 08:45:00 09:49:37 ROCÍO ity o f [facility] 2021-02-26 2021-02-27 Emergency [place] [facility] 1.2.840.114 [id number] 23:38:00 02:03:00 Florence Saha 350.1.13.10 [place] 4.2.7.2.686 [place] [id number] 2021-02-26 2021-02-26 Orders Doctor SWETA 1.2.840.114 [id number] 00:00:00 00:00:00 Only Unassigned, ADIN 350.1.13.10 [place] [id number] [id number] 2020-07-16 2020-07-16 Emergency [facility] [id number] 18:41:00 20:35:00 Trini Saha 350.1.13.10 [place] 4.2.7.2.686 [place] [id number] 2020-04-08 2020-04-08 Letter SWETA [place] 1.2.840.114 [id number] 00:00:00 00:00:00 (Out) Lynn O[place] 350.1.13.10 [place] [id number] [id number] 2020-04-08 2020-04-08 Telephone Yazmin SOL 1.2.840.114 [id number] 00:00:00 00:00:00 , Soraida [place] 350.[address].13.[address]686 [id number] [id number] 2020-04-07 2020-04-07 Laboratory Lab, [facility] 1.2.840.114 [id number] 15:00:05 15:20:05 Only Fam Pob [facility] 350.1.13.10 [place] 4.2.7.2.686 Professio [id number] nal [address] 2020-01-26 2020-01-27 [facility] [id number] 23:35:20 01:24:00 Trini Saha 350.1.13.10 [place] 4.2.7.2.686 [place] [id number] Results Test Description Test Time Test Comments Results Result Comments Source POCT URINALYSIS W/O SPECIFIC GRAVITY 2022-02-01 21:11:00 Test Item Value Reference Range Interpretation Comme nts POCT PH U (test code = 3254) n/a 5-8 POCT U LEUK EST (test code = 3263) n/a Negative - Negative POCT U NIT (test code = 3262) n/a Negative - Negative POCT U PROT (test code = 3259) neg Negative - Negative POCT U GLU (test code = 3256) neg Negative - Negative POCT U KETONE (test code = 3258) n/a Negative - Negative POCT U BLD (test code = 3257) n/a Negative - [facility] [id number] 19:26:00 Test Item Value Reference Range Interpretation Comments POCT PH U (test code = 3254) [...] - Negative Lab Interpretation (test code = Normal [id number]) [facility]
--- NOTE | 2022-02-15 11:44 | RAD REPORT ---
EXAM DESCRIPTION: US - OB Limited - 02/15/2022 11:32 am CLINICAL HISTORY: ABD CRAMPING, Trauma, pain, COMPARISON: No comparisons FINDINGS: Limited examination was requested by the emergency room. A single transverse presenting gestation is identified. Heart rate normal. Amniotic fluid volume is subjectively normal. Estimated age 18 weeks 2 days. Cervix appears amada sed. Placenta is posterior fundal without abruption or previa findings.
[2022-02-15 12:51] LABS: Urine Blood Negative (Negative); Urine Glucose Negative (Negative); Urine Protein Trace (Negative); Urine Specific Gravity 1.025 (1.005-1.030); Urine pH 5.5 (5.0-7.0)
[2022-02-15 12:58] LABS: Absolute Lymphocytes (CBC) 1.6 K/uL (0.7-4.9); Hematocrit 40.4 % (36.0-45.0); Lymphocytes % 13.7 % (15.3-44.8); MPV 9.3 fL (7.6-11.3); RBC Red Blood Cell Count 4.39 M/uL (3.86-4.86)
[2022-02-15 13:01] LABS: Urine Specific Gravity/Preg 1.025 (1.005-1.030)
[2022-02-15 13:06] LABS: Calcium Oxalate Crystals- Ur MODERATE (NONE SEEN); Urine Bacteria 20-50 /HPF (<20); Urine RBC NONE SEEN /HPF (NONE SEEN)
[2022-02-15 13:17] LABS: Potassium 3.7 mmol/L (3.5-5.1)
--- NOTE | 2022-02-15 13:58 | ER ---
Nurse's Notes [facility] Name: Alma Bates Age: 26 yrs Sex: Female : 1995 Arrival Date: 02/15/2022 Time: 10:27 Bed 9 Private MD: Diagnosis: Abdominal pain, unspecified Presentation: 02/15 11:01 Chief complaint: Patient states: she was in bed this morning when her 55lb dog jumped ap3 onto her stomach to get off the bed. patient reports abdominal pain, and being approx 17 weeks . Coronavirus screen: At this time, the client does not indicate any symptoms associated with coronavirus-19. Ebola Screen: No symptoms or risks identified at this time. Initial Sepsis Screen: Does the patient meet any 2 criteria? No. Patient's initial sepsis screen is negative. Does the patient have a suspected source of infection? No. Patient's initial sepsis screen is negative. Risk Assessment: Do you want to hurt yourself or someone else? Patient reports no desire to harm self or others. Onset of symptoms was February 15, 2022. 11:01 Method Of Arrival: Ambulatory ap3 11:01 Acuity: DIANE 3 ap3 Triage Assessment: 11:03 General: Appears in no apparent distress. uncomfortable, Behavior is calm, cooperative, ap3 appropriate for age. Pain: Complains of pain in abdomen Pain currently is 6 out of 10 on a pain scale. Neuro: Level of Consciousness is awake, alert, obeys commands, Oriented to person, place, time, situation, Appropriate for age Gait is steady, Speech is normal. Cardiovascular: Patient's skin is warm and dry. Respiratory: Airway is patent Respiratory effort is even, unlabored. GI: Reports lower abdominal pain, upper abdominal pain. 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 - Social history:: Smoking status: Patient denies any tobacco usage or history of. Screenin:04 Abuse screen: Denies threats or abuse. Nutritional screening: No deficits noted. ap3 Tuberculosis screening: No symptoms or risk factors identified. Fall Risk None identified. Assessment: 11:06 GI: Abdomen is tender to palpation in suprapubic area. ap3 13:25 General: Appears in no apparent distress. comfortable. Pain: Complains of pain in ld1 abdomen Pain does not radiate. Pain currently is 4 out of 10 on a pain scale. Neuro: Bryant Agitation-Sedation Scale (RASS): Level of Consciousness is awake, alert, obeys commands, Oriented to person, place, time, situation. Cardiovascular: Capillary refill < 3 seconds Patient's skin is warm and dry. Respiratory: Airway is patent Respiratory effort is even, unlabored. : No signs and/or symptoms were reported regarding the genitourinary system. 14:17 Reassessment: Patient appears in no apparent distress at this time. Patient and/or ld1 family updated on plan of care and expected duration. Pain level reassessed. Patient is alert, oriented x 3, equal unlabored respirations, skin warm/dry/pink. Vital Signs: 11:01 BP 104 / 70; Pulse 73; Resp 17; Temp 98.3; Pulse Ox 100% ; Weight 84.37 kg; Height 5 ap3 ft. 4 in. (162.56 cm); Pain 6/10; 13:25 BP 111 / 76; Pulse 71; Resp 18; Pulse Ox 100% on R/A; ld1 14:17 BP 114 / 72; Pulse 74; Resp 18; Pulse Ox 100% on R/A; ld1 11:01 Body Mass Index 31.93 (84.37 kg, 162.56 cm) ap3 ED Course: 10:27 Patient arrived in ED. rg4 10:29 Ye Lara NP is PHCP. pm1 10:29 Baron Workman MD is Attending Physician. pm1 11:02 Triage completed. ap3 11:04 Patient has correct armband on for positive identification. Adult w/ patient. Pulse ox ap3 on. NIBP on. 11:04 Arm band placed on right wrist. ap3 11:34 OB Limited In Process Unspecified. EDMS 12:30 Olga Brito, ADI is Primary Nurse. ld1 12:52 Inserted saline lock: 20 gauge in right antecubital area, using aseptic technique. ld1 Blood collected. 13:25 No provider procedures requiring assistance completed. ld1 14:18 IV discontinued, intact, bleeding controlled, No redness/swelling at site. ld1 Administered Medications: 14:06 Drug: Rocephin (cefTRIAXone) 1 grams Route: IV; Rate: calculated rate; Site: right ld1 antecubital; Medication: 11:05 VIS not applicable for this client. ap3 Outcome: 13:57 Discharge ordered by MD. pm1 14:18 Discharged to home ambulatory. ld1 14:18 Condition: stable 14:18 Discharge instructions given to patient, family, Instructed on discharge instructions, follow up and referral plans. medication usage, Demonstrated understanding of instructions, follow-up care, medications, Prescriptions given X 1. 14:18 Patient left the ED. ld1 Signatures: Dispatcher [employer] EDMS Ye Lara NP ASSISTANT CONSTRUCTION SUPERINTENDENT pm1 Samantha Kramer4 Deanna Monahan RN RN ap3 Olga Brito RN RN ld1 Corrections: (The following items were deleted from the chart) 11:05 11:02 Allergies: No Known Allergies; ap3 ap3 11:05 11:02 Home Meds: None; ap3 ap3 11:05 11:02 PMHx: Pilonidal cyst; ap3 ap3
--- NOTE | 2022-02-15 13:58 | EDPHYS ---
Physician Documentation [facility] Name: Alma Bates Age: 26 yrs Sex: Female : 1995 Arrival Date: 02/15/2022 Time: 10:27 Bed 9 Private MD: ED Physician Baron Workman HPI: 02/15 11:06 This 26 yrs old Female presents to ER via Ambulatory with complaints of pm1 Abdominal Pain, 17 Wks . 11:06 The patient presents with abdominal pain in the lower abdomen. Onset: The pm1 symptoms/episode began/occurred today. The symptoms do not radiate. Associated signs and symptoms: none. The symptoms are described as achy. Modifying factors: The symptoms are alleviated by nothing, the symptoms are aggravated by nothing. Severity of pain: in the emergency department the pain has improved. The patient has not experienced similar symptoms in the past. The patient has not recently seen a physician. Patient was sleeping in bed and then she was awaken when her 50 lb dog jumped off the bed by stepping on her abdomen. 17 weeks . No vaginal bleeding or dysuria. 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 - Social history:: Smoking status: Patient denies any tobacco usage or history of. ROS: 11:06 Constitutional: Negative for fever, chills, and weight loss, Cardiovascular: Negative pm1 for chest pain, palpitations, and edema, Respiratory: Negative for shortness of breath, cough, wheezing, and pleuritic chest pain. 11:06 Back: Negative for injury and pain, MS/Extremity: Negative for injury and deformity, Skin: Negative for injury, rash, and discoloration. 11:06 Abdomen/GI: Positive for abdominal pain, of the right lower quadrant and left lower quadrant, Negative for nausea, vomiting, and diarrhea, constipation. 11:06 All other systems are negative. Exam: 11:06 Constitutional: This is a well developed, well nourished patient who is awake, alert, pm1 and in no acute distress. Head/Face: Normocephalic, atraumatic. 11:06 Back: No spinal tenderness. No costovertebral tenderness. Full range of motion. Skin: Warm, dry with normal turgor. Normal color with no rashes, no lesions, and no evidence of cellulitis. MS/ Extremity: Pulses equal, no cyanosis. Neurovascular intact. Full, normal range of motion. 11:06 Cardiovascular: Exam negative for acute changes, Rate: normal, Rhythm: regular, Pulses: no pulse deficits are appreciated. 11:06 Respiratory: Exam negative for acute changes, respiratory distress, shortness of breath. 11:06 Abdomen/GI: Inspection: abdomen appears normal, Palpation: soft, in all quadrants, mild abdominal tenderness, in the suprapubic area. 11:06 Neuro: Exam negative for acute changes, Orientation: is normal, Mentation: is normal, Motor: is normal, moves all fours. Vital Signs: 11:01 BP 104 / 70; Pulse 73; Resp 17; Temp 98.3; Pulse Ox 100% ; Weight 84.37 kg; Height 5 ap3 ft. 4 in. (162.56 cm); Pain 6/10; 13:25 BP 111 / 76; Pulse 71; Resp 18; Pulse Ox 100% on R/A; ld1 14:17 BP 114 / 72; Pulse 74; Resp 18; Pulse Ox 100% on R/A; ld1 11:01 Body Mass Index 31.93 (84.37 kg, 162.56 cm) ap3 MDM: 11:15 Patient medically screened. pm1 13:56 Data reviewed: vital signs. Data interpreted: Pulse oximetry: on room air is 100 %. pm1 Interpretation: normal. Counseling: I had a detailed discussion with the patient and/or guardian regarding: the historical points, exam findings, and any diagnostic results supporting the discharge/admit diagnosis, lab results, radiology results, the need for outpatient follow up, an OB/Gyne specialist, to return to the emergency department if symptoms worsen or persist or if there are any questions or concerns that arise at home. 02/15 11:04 Order name: Abo/rh Typing; Complete Time: 13:56 pm1 02/15 11:04 Order name: Basic Metabolic Panel; Complete Time: 13:56 pm1 02/15 11:04 Order name: CBC with Diff; Complete Time: 13:56 pm1 02/15 11:04 Order name: Quantitative Hcg; Complete Time: 13:56 pm1 02/15 11:04 Order name: Urine Microscopic Only; Complete Time: 13:56 pm1 02/15 12:52 Order name: Urine Dipstick-Ancillary; Complete Time: 13:56 EDMS 02/15 11:04 Order name: IV Saline Lock; Complete Time: 12:51 pm1 02/15 11:04 Order name: Labs collected and sent; Complete Time: 12:51 pm1 02/15 11:04 Order name: NPO; Complete Time: 12:52 pm1 02/15 11:34 Order name: OB Limited; Complete Time: 12:27 EDMS 02/15 12:52 Order name: Urine --Ancillary (enter results); Complete Time: 13:56 bd 02/15 13:09 Order name: Urine Culture EDMS 02/15 11:04 Order name: Urine Dipstick-Ancillary (obtain specimen); Complete Time: 12:51 pm1 02/15 11:04 Order name: Urine Test (obtain specimen); Complete Time: 12:51 pm1 Administered Medications: 14:06 Drug: Rocephin (cefTRIAXone) 1 grams Route: IV; Rate: calculated rate; Site: right ld1 antecubital; Disposition Summary: 02/15/22 13:57 Discharge Ordered Location: Home pm1 Problem: new pm1 Symptoms: have improved pm1 Condition: Stable pm1 Diagnosis - Abdominal pain, unspecified pm1 Followup: pm1 - With: Emergency Department - When: As needed - Reason: Worsening of condition Followup: pm1 - With: Private Physician - When: 2 - 3 days - Reason: Recheck today's complaints, Continuance of care, Re-evaluation by your physician Discharge Instructions: - Discharge Summary Sheet pm1 - Abdominal Pain During pm1 - Contusion pm1 Forms: - Medication Reconciliation Form pm1 - Thank You Letter pm1 - Antibiotic Education pm1 - Prescription Opioid Use pm1 Prescriptions: - Macrobid 100 mg Oral Capsule - take 1 capsule by ORAL route every 12 hours for 7 days; 14 capsule; Refills: 0, pm1 Product Selection Permitted Signatures: Dispatcher [employer] EDYe Morris NP SALES AND TRAINING SPECIALIST pm1 Deanna Monahan RN RN ap3 Olga Brito RN RN ld1 Corrections: (The following items were deleted from the chart) : 11:02 Allergies: No Known Allergies; ap3 ap3 11:02 Home Meds: None; ap3 ap3 11:02 PMHx: Pilonidal cyst; ap3 ap3 11:34 11:11 OB Complete+US.RAD.BRZ ordered. EDMS EDMS
[2022-02-15] MEDS ORDERED: CEFTRIAXONE 1000 MG/VIAL ONE (14:19)
[2022-02-15 14:33] VITALS: TEMP 98.3; O2SAT 100
[2022-02-15 14:36] VITALS: BP 114/72
== END 2022-02-15 14:18 | disposition home or self-care (01) ==
LOC: ER 10:23
DX: O26.892 Other specified pregnancy related conditions, second trimester (principal); Z3A.17 17 weeks gestation of pregnancy
CPT/HCPCS: 36415; 76815; 80048; 81003; 81015; 81025; 84702; 85025; 86900; 86901; 87086; 87088; 96374; 99284